=== PATIENT | female | born 2000 | race African-American/Black ===

== ENCOUNTER 2022-04-10 06:36 | Emergency (ER) | payer BC ==
--- OUTSIDE RECORDS SUMMARY | 2022-04-10 06:42 | XMS REPORT | Continuity of Care Document ---
:2000 Author Organization [facility] t Address [address] [place] [address] Care Team Providers Name Role Phone Bacilio OLEARY Primary Care Physician Unavailable Kirill BANUELOS Attending Clinician Unavailable Kirill Banuelos MD Attending Clinician 2, Lab Attending Clinician Unavailable Vinicio MINA Attending Clinician Unavailable Vinicio Moreno Attending Clinician Doctor Unassigned, Name Attending Clinician Unavailable Bang Colbert DO Attending Clinician Singer DREW Attending Clinician Birdie Garcia MD Attending Clinician Ammon HENDERSON Attending Clinician MELVIN Attending Clinician Unavailable Bacilio Bates Attending Clinician BIRDIE GARCIA Admitting Clinician Unavailable Kirill BANUELOS Admitting Clinician Unavailable Kirill Banuelos MD Admitting Clinician Vinicio MINA Admitting Clinician Unavailable Birdie Garcia MD Admitting Clinician Payers Payer Name Policy Type Policy Number Effective Date Expiration Date Lesa puga [facility] [id number] 2017 00:00:00 [employer] II [id number] 2021 00:00:00 Problems Condition Condition Condition Status Onset Resolution Last Treating Co mments Source Name Details Category Date Date Treatment Clinician Date Hyperemesi Hyperemesi Disease Active U nivers s s 7-22 ity of gravid[place] with 00 Medical dehydratio dehydratio Br anch n n High-risk High-risk Disease Active Uni vers 7-22 ity of in first in first 00:00: [place] trimester trimester 00 [facility] 9 weeks 9 weeks Disease Active Univers gestation gestation 7-22 ity of of of 00:00: [place] 00 [facility] Nausea and Nausea and Disease Active U nivers vomiting vomiting 2-25 ity of during during 00:00: [place] 00 [facility] prior to prior to [place] 22 weeks 22 weeks gestation gestation Hypokalemi Hypokalemi Disease Active U nivers a a 2-25 ity of 00:00: [place] [facility] Hypomagnes Hypomagnes Disease Active U nivers emia emia 2-25 ity of 00:00: [place] [facility] BV BV Disease Active Univers (bacterial (bacterial 2-25 it y of vaginosis) vaginosis) [place] [facility] Bloody Bloody Disease Active Univers stool stool 4-19 ity of 00:00: [place] [facility] Other Other Disease Active Univers general general 3-15 ity of counseling counseling 00:00[place] and advice and advice 00 [facility] shania management management Heavy Heavy Disease Active Univers menses menses 3-15 ity of 00:00: [place] [facility] Lump or Lump or Disease Active 2015-09 Univers mass in mass in 1-04 ity of breast breast 00:00: [address] No known No known Disease Unive rs active active ity of problems problems [facility] Allergies, Adverse Reactions, Alerts Allergy Allergy Status Severity Reaction(s) Onset Inactive Treating Comm ents Source Name Type Date Date Clinician NO KNOWN Drug Active Univers ALLERGIE Class ity of S [facility] Social History Social Habit Start Date Stop Date Quantity Comments Source ASSERTION 2022-02-16 University of 00:00:00 [facility] Exposure to 2022-03-29 2022-04-08 Not sure [facility] SARS-CoV-2 00:00:00 09:39:00 [facility] (event) Branch Alcohol intake 2022-03-24 2022-03-24 0 /d University of 00:00:00 00:00:00 [facility] Tobacco use and 2015-09-15 2015-09-15 Smokeless tobacco Un iversity of exposure 00:00:00 00:00:00 non-user [facility] Tobacco Comment 2015-09-15 2015-09-15 no smoke exposure Un iversity of 00:00:00 00:00:00 [facility] Sex Assigned At [birth year] Universit y of 00:00:00 00:00:00 [facility] Smoking Status Start Date Stop Date Source Never smoked tobacco [facility] Medications Ordered Filled Start Stop Current Ordering Indication Dosage Frequency Signature Comments Components Source Medication Medication Date Date Medication? Clinician (SIG) Name Name NaCl 0.9% Yes 1000mL at 999 Univ ers (NS) IV 7-22 mL/hr, IV ity of infusion 19:15: [place] 1,000 mL 00 CONTINUOUS Medic al , Starting Branch on Mon04/08/22 at 1415, Until Discontinu ed, Routine&lt ;br>X 2 liters
ondansetron Yes 4mg 4 mg, Slow Univers (ZOFRAN 7-22 IV Push, ity of (PF)) 18:14: Q6HPRN, [place] injection 4 16 Starting Medi kaden mg on Mon Branch 04/08/22 at 1314, Until Discontinu ed, Routine, Nausea and Vomiting (N/V) proMETHazin Yes 25mg Take 1 Univers e 25 mg 7-22 tablet by ity of tablet 00:00: mouth [place] 00 every 4 Medical (four) Branch hours as needed for Nausea and Vomiting (N/V) or N/V alternatin g with Ondansetro n. ondansetron Yes 4mg Take 1 Univers 4 mg 7-22 tablet by ity of disintegrat 00:00: mouth [place] ing tablet 00 every 8 Medica l (eight) Branch hours as needed for N/V unresponsi ve to Promethazi ne. proMETHazin Yes 25mg Take 1 Univers e 25 mg 7-22 tablet by ity of tablet 00:00: mouth [place] 00 every 4 Medical (four) Branch hours as needed for Nausea and Vomiting (N/V) or N/V alternatin g with Ondansetro n. ondansetron Yes 4mg Take 1 Univers 4 mg 7-22 tablet by ity of disintegrat 00:00: mouth [place] ing tablet 00 every 8 Medica l (eight) Branch hours as needed for N/V unresponsi ve to Promethazi ne. proMETHazin Yes 25mg Take 1 Univers e 25 mg 7-22 tablet by ity of tablet 00:00: mouth [place] 00 every 4 Medical (four) Branch hours as needed for Nausea and Vomiting (N/V) or N/V alternatin g with Ondansetro n. ondansetron Yes 4mg Take 1 Univers 4 mg 7-22 tablet by ity of disintegrat 00:00: mouth [place] ing tablet 00 every 8 Medica l (eight) Branch hours as needed for N/V unresponsi ve to Promethazi ne. NaCl 0.9% 2021- No 1000mL at 999 Uni vers (NS) bolus 7-07 07-07 mL/hr, ity of infusion 17:00: 17:52 1,000 mL, [place] 1,000 mL 00 :00 IV Medical Infusion, Branch ONCE, 1 dose, On [place] 03/24/22 at 1200, VIN doxylamine- 0 Yes [id number] 2{tbl} Take 2 Univers pyridoxine, 7-06 tablets by it y of vit B6, 00:00: mouth at [place] ([facility] 00 bedtime. Medic al 10-10 mg Branch per tablet doxylamine- 2021-0 Yes [id number] 2{tbl} Take 2 Univers pyridoxine, 7-06 tablets by it y of vit B6, 00:00: mouth at [place] ([facility]) 00 bedtime. Medic al 10-10 mg Branch per tablet doxylamine- 2021-0 Yes [id number] 2{tbl} Take 2 Univers pyridoxine, 7-06 tablets by it y of vit B6, 00:00: mouth at [facility]) 00 bedtime. Medic al 10-10 mg Branch per tablet doxylamine- Yes [id number] 2{tbl} Take 2 Univers pyridoxine, 7-06 tablets by it y of vit B6, 00:00: mouth at [place] ([facility]) 00 bedtime. Medic al 10-10 mg Branch per tablet doxylamine- Yes [id number] 2{tbl} Take 2 Univers pyridoxine, 7-06 tablets by it y of vit B6, 00:00: mouth at [place] ([facility]) 00 bedtime. Medic al 10-10 mg Branch per tablet proMETHazin Yes [id number] 25mg Insert 1 Univers e 25 mg 03-18 Suppositor ity of suppository 00:00: [place] 00 rectum Medical every 4 Branch (four) hours as needed for Nausea and Vomiting (N/V). proMETHazin 2021- No [id number] 25mg Insert 1 Univers e 25 mg 03-18-06 Suppositor ity o f suppository 00:00: 00:00 y into [place] as 00 :00 rectum Medical every 4 Branch (four) hours as needed for Nausea and Vomiting (N/V). NaCl 0.9% 2020- No 1000mL at 999 Uni vers (NS) bolus 04-18 mL/hr, ity of infusion 05:30: 08:15 1,000 mL, [place] 1,000 mL 00 :00 [facility] dose, 04/18/21 at 0030, STAT ondansetron 2020- No 8mg 8 mg, Slow Univers (ZOFRAN 04-18 IV Push, ity of (PF)) 05:30: 06:50 ONCE, 1 [place] injection 8 00 :00 dose, [place] Med ical mg 04/18/21 at Branch 0030, Routine metroNIDAZO Yes 1{appli 1 Uni vers LE 11-13 cator} Applicator ity of (METROGEL) 03:00: , Vaginal, [place] 0.75 % 00 QHS, First Medical vaginal gel dose on Branc h 1 [place] Applicator 11/12/20 at 2100, Until Discontinu ed, Routine metoclopram 1-0 Yes 10mg 10 mg, Univ ers arminda HCl 2-26 Slow IV ity of (REGLAN) 01:16: Push, [place] injection 30 Q6HPRN, Medical 10 mg Starting Branch [place] 11/12/20 at 1916, Until Discontinu ed, VIN, Nausea and Vomiting (N/V) metoclopram 2021-0 Yes [id number] 10mg Take 1 Univers arminda HCl 10 2-26 tablet by ity of mg tablet 00:00: mouth [place] 00 every 6 Medical (six) Branch hours as needed for Nausea and Vomiting (N/V). metoclopram 2021-0 Yes [id number] 10mg Take 1 Univers arminda HCl 10 2-26 tablet by ity of mg tablet 00:00: mouth [place] 00 every 6 Medical (six) Branch hours as needed for Nausea and Vomiting (N/V). metoclopram 2021-0 Yes [id number] 10mg Take 1 Univers arminda HCl 10 2-26 tablet by ity of mg tablet 00:00: mouth [place] 00 every 6 Medical (six) Branch hours as needed for Nausea and Vomiting (N/V). metoclopram 2021-0 Yes [id number] 10mg Take 1 Univers arminda HCl 10 2-26 tablet by ity of mg tablet 00:00: mouth [place] 00 every 6 Medical (six) Branch hours as needed for Nausea and Vomiting (N/V). metoclopram 2021-0 Yes [id number] 10mg Take 1 Univers arminda HCl 10 2-26 tablet by ity of mg tablet 00:00: mouth [place] 00 every 6 Medical (six) Branch hours as needed for Nausea and Vomiting (N/V). metoclopram 2021-0 Yes [id number] 10mg Take 1 Univers arminda HCl 10 2-26 tablet by ity of mg tablet 00:00: mouth [place] 00 every 6 Medical (six) Branch hours as needed for Nausea and Vomiting (N/V). metoclopram 2021-0 Yes [id number] 10mg Take 1 Univers arminda HCl 10 2-26 tablet by ity of mg tablet 00:00: mouth [place] 00 every 6 Medical (six) Branch hours as needed for Nausea and Vomiting (N/V). metoclopram 2021-0 Yes [id number] 10mg Take 1 Univers arminda HCl 10 2-26 tablet by ity of mg tablet 00:00: mouth [place] 00 every 6 Medical (six) Branch hours as needed for Nausea and Vomiting (N/V). metoclopram No [id number] 10mg Take 1 Univers arminda HCl 10 11-13 0722 tablet by ity of mg tablet 00:00: 00:00 mouth [place] 00 :00 every 6 Medical (six) Branch hours as needed for Nausea and Vomiting (N/V). metroNIDAZO 2020- No [id number] 1{appli Insert 1 Univers LE 0.75 % 11-13 cator} Applicator i ty of vaginal gel 00:00: 05:59 into [place] 00 :00 vagina at [facility] bedtime [place] for 4 days. magnesium No 2g 2 g, IV Univ ers sulfate in 11-13 Piggyback, it y of water 2 00:00: 01:31 ONCE, 1 [place] gram/50 mL 00 :00 dose, [place] Medi kaden (4 %) 11/12/20 at [place] infusion 2 1800, g Routine NaCl 0.9% Yes IV Univers (NS) 1000 11-12 Infusion, ity o f mL + KCL 40 21:00: at 125 [place] mEq 00 mL/hr, Medical CONTINUOUS [place] , Starting [place] 11/12/20 at 1500, Until Discontinu ed, Routine KCL No 40meq 40 mEq, Univers (KLOR-CON 11-12 Oral, ity of M20) tablet 16:00: 15:18 ONCE, 1 [place] 40 mEq 00 :00 dose, [place] Medical 11/12/20 at Branch 1000, VIN proMETHazin 2020- No 25mg 25 mg, IV Univers e 11-12 Piggyback, ity of (PHENERGAN) 15:45: 14:48 ONCE, 1 [place] 25 mg in 00 :00 dose, [place] Medica l NaCl 0.9% 11/12/20 at [facility] ch (NS) 50 mL 0945, 50 piggyback mL dicyclomine 2020- No 20mg 20 mg, Uni vers (BENTYL) 11-12 Oral, ity of tablet 20 15:15: 14:13 ONCE, 1 [place] mg 00 :00 dose, [place] Medical 11/12/20 at Branch 0915, Routine acetaminoph 2020- No 650mg 650 mg, U nivers en 11-12 Oral, ity of (TYLENOL) 15:00: 14:00 ONCE, 1 [place] tablet 650 00 :00 dose, [place] Medi kaden mg 11/12/20 at Branch 0900, VIN metoclopram 2020- No 10mg 10 mg, Uni vers arminda HCl 11-12 Slow IV ity of (REGLAN) 14:45: 13:42 Push, [place] injection 00 :00 ONCE, 1 Medical 10 mg dose, [place] Branch 11/12/20 at 0845, VIN NaCl 0.9% 2020- No 1000mL at 999 Uni vers (NS) bolus 11-12 mL/hr, ity of infusion 13:45: 14:45 1,000 mL, [place] 1,000 mL 00 :00 IV Medical Infusion, [place] ONCE, 1 dose, [place] 11/12/20 at 0745, STAT proMETHazin 2020- No [id number] 25mg Insert 1 Univers e 25 mg 11-12 Suppositor ity o f suppository 00:00: 00:00 y into [place] as 00 :00 rectum Medical every 4 Branch (four) hours as needed for Nausea and Vomiting (N/V). metroNIDAZO 2020- No [id number] 1{appli Insert 1 Univers LE 11-12 cator} Applicator ity of (METROGEL 00:00: 00:00 into [place] VAGINAL) 00 :00 vagina at Medica l 0.75 % bedtime. [place] vaginal gel haloperidol 2020- No 2.5mg 2.5 mg, U nivers lactate 11-10 Intravenou ity o f (HALDOL) 15:30: 14:44 s, ONCE, 1 [place] injection 00 :00 dose, Tue Medic al 2.5 mg 11/10/20 at Branch 0930, STAT NaCl 0.9% 2020- No 1000mL at 999 Uni vers (NS) bolus 2-23 02- mL/hr, ity of infusion 14:30: 17:32 1,000 mL, [place] 1,000 mL 00 :00 IV Medical Infusion, Branch ONCE, 1 dose, 11/10/20 at 0830, VIN KCL 2020- No 10meq 10 mEq, IV Unive rs (POTASSIUM 11-10 Piggyback, it y of CHLORIDE) 14:00: 12:53 ONCE, 1 [place] 10 mEq in 00 :00 dose, Tue Medic al NaCl 0.9% 11/10/20 at Bran ch (NS) 100 mL 0800, 100 piggyback mL metoclopram 2020- No 10mg 10 mg, Uni vers arminda HCl 11-10 Slow IV ity of (REGLAN) 13:30: 12:23 Push, [place] injection 00 :00 ONCE, 1 Medical 10 mg dose, Tue Branch 11/10/20 at 0730, VIN NaCl 0.9% 2020- No 1000mL at 999 Uni vers (NS) bolus 11-10 mL/hr, ity of infusion 13:30: 15:19 1,000 mL, [place] 1,000 mL 00 :00 IV Medical Infusion, Branch ONCE, 1 dose, 11/10/20 at 0730, STAT ondansetron Yes [id number] 4mg Take 1 Univers (ZOFRAN 2-23 tablet by ity of ODT) 4 mg 00:00: mouth [place] disintegrat 00 every 8 Medic al ing tablet (eight) Branch hours as needed for Nausea and Vomiting (N/V). ondansetron 0 2020- No [id number] 4mg Take 1 Univers (ZOFRAN 2-23 02-26 tablet by ity of ODT) 4 mg 00:00: 00:00 mouth [place] disintegrat 00 :00 every 8 Medic al ing tablet (eight) Branch hours as needed for Nausea and Vomiting (N/V). No known No Univers medications ity [facility] [place] No known No Univers medications ity [facility] [place] No known No Univers medications ity [facility] [place] No known No [facility] No Univers medications [facility] Immunizations Ordered Immunization Filled Immunization Date Status Commen ts Source Name Name Td 2016-04-13 Completed University of 00:00:00 [facility] Td 2016-04-13 Completed University of 00:00:00 [facility] Td 2016-04-13 Completed University of 00:00:00 [facility] Td 2016-04-13 Completed University of 00:00:00 [facility] Td 2016-04-13 Completed University of 00:00:00 [facility] Td 2016-04-13 Completed University of 00:00:00 [facility] Td 2016-04-13 Completed University of 00:00:00 [facility] Td 2016-04-13 Completed University of 00:00:00 [facility] Td 2016-04-13 Completed University of 00:00:00 [facility] Td 2016-04-13 Completed University of 00:00:00 [facility] Td 2016-04-13 Completed University of 00:00:00 [facility] Td 2016-04-13 Completed University of 00:00:00 [facility] Td 2016-04-13 Completed University of 00:00:00 [facility] Td 2016-04-13 Completed University of 00:00:00 [facility] Td 2016-04-13 Completed University of 00:00:00 [facility] Td 2016-04-13 Completed University of 00:00:00 [facility] Td 2016-04-13 Completed University of 00:00:00 [facility] Meningococcal 2015-09-15 Completed University of Polysaccharide 00:00:00 [place] Medi kaden (groups A, C, Y and Branc h W-135) conjugate vaccine (MCV4P) Meningococcal 2015-09-15 Completed University of Polysaccharide 00:00:00 [place] Medi kaden (groups A, C, Y and Branc h W-135) conjugate vaccine (MCV4P) Meningococcal 2015-09-15 Completed University of Polysaccharide 00:00:00 [place] Medi kaden (groups A, C, Y and Branc h W-135) conjugate vaccine (MCV4P) Meningococcal 2015-09-15 Completed University of Polysaccharide 00:00:00 [place] Medi kaden (groups A, C, Y and Branc h W-135) conjugate vaccine (MCV4P) Meningococcal 2015-09-15 Completed University of Polysaccharide 00:00:00 [place] Medi kaden (groups A, C, Y and Branc h W-135) conjugate vaccine (MCV4P) Meningococcal 2015-09-15 Completed University of Polysaccharide 00:00:00 [place] Medi kaden (groups A, C, Y and Branc h W-135) conjugate vaccine (MCV4P) Meningococcal 2015-09-15 Completed University of Polysaccharide 00:00:00 [place] Medi kaden (groups A, C, Y and Branc h W-135) conjugate vaccine (MCV4P) Meningococcal 2015-09-15 Completed University of Polysaccharide 00:00:00 [place] Medi kaden (groups A, C, Y and Branc h W-135) conjugate vaccine (MCV4P) Meningococcal 2015-09-15 Completed University of Polysaccharide 00:00:00 [place] Medi kaden (groups A, C, Y and Branc h W-135) conjugate vaccine (MCV4P) Meningococcal 2015-09-15 Completed University of Polysaccharide 00:00:00 [place] Medi kaden (groups A, C, Y and Branc h W-135) conjugate vaccine (MCV4P) Meningococcal 2015-09-15 Completed University of Polysaccharide 00:00:00 [place] Medi kaden (groups A, C, Y and Branc h W-135) conjugate vaccine (MCV4P) Meningococcal 2015-09-15 Completed University of Polysaccharide 00:00:00 [place] Medi kaden (groups A, C, Y and Branc h W-135) conjugate vaccine (MCV4P) Meningococcal 2015-09-15 Completed University of Polysaccharide 00:00:00 [place] Medi kaden (groups A, C, Y and Branc h W-135) conjugate vaccine (MCV4P) Meningococcal 2015-09-15 Completed University of Polysaccharide 00:00:00 [place] Medi kaden (groups A, C, Y and Branc h W-135) conjugate vaccine (MCV4P) Meningococcal 2015-09-15 Completed University of Polysaccharide 00:00:00 [place] Medi kaden (groups A, C, Y and Branc h W-135) conjugate vaccine (MCV4P) Meningococcal 2015-09-15 Completed University of Polysaccharide 00:00:00 [place] Medi kaden (groups A, C, Y and Branc h W-135) conjugate vaccine (MCV4P) Meningococcal 2015-09-15 Completed University of Polysaccharide 00:00:00 [place] Medi kaden (groups A, C, Y and Branc h W-135) conjugate vaccine (MCV4P) HPV 2012-11-12 Completed University of 00:00:00 [facility] HPV 2012-11-12 Completed University of 00:00:00 [facility] HPV 2012-11-12 Completed University of 00:00:00 [facility] Branch HPV 2012-11-12 Completed University of 00:00:00 [facility] Branch HPV 2012-11-12 Completed University of 00:00:00 [facility] Branch HPV 2012-11-12 Completed University of 00:00:00 [facility] Branch HPV 2012-11-12 Completed University of 00:00:00 [facility] Branch HPV 2012-11-12 Completed University of 00:00:00 [facility] Branch HPV 2012-11-12 Completed University of 00:00:00 [facility] Branch HPV 2012-11-12 Completed University of 00:00:00 [facility] Branch HPV 2012-11-12 Completed University of 00:00:00 [facility] Branch HPV 2012-11-12 Completed University of 00:00:00 [facility] Branch HPV 2012-11-12 Completed University of 00:00:00 [facility] HPV 2012-11-12 Completed University of 00:00:00 [facility] HPV 2012-11-12 Completed University of 00:00:00 [facility] HPV 2012-11-12 Completed University of 00:00:00 [facility] HPV 2012-11-12 Completed University of 00:00:00 [facility] Influenza Virus 2012-07-12 Completed Universit y of Vaccine - Whole 00:00:00 [facility] HPV 2012-07-12 Completed University of 00:00:00 [facility] Influenza Virus 2012-07-12 Completed Universit y of Vaccine - Whole 00:00:00 [facility] HPV 2012-07-12 Completed University of 00:00:00 [facility] Influenza Virus 2012-07-12 Completed Universit y of Vaccine - Whole 00:00:00 [facility] HPV 2012-07-12 Completed University of 00:00:00 [facility] Influenza Virus 2012-07-12 Completed Universit y of Vaccine - Whole 00:00:00 [facility] HPV 2012-07-12 Completed University of 00:00:00 [facility] Influenza Virus 2012-07-12 Completed Universit y of Vaccine - Whole 00:00:00 [facility] HPV 2012-07-12 Completed University of 00:00:00 [facility] Influenza Virus 2012-07-12 Completed Universit y of Vaccine - Whole 00:00:00 [facility] HPV 2012-07-12 Completed University of 00:00:00 [facility] Influenza Virus 2012-07-12 Completed Universit y of Vaccine - Whole 00:00:00 [facility] HPV 2012-07-12 Completed University of 00:00:00 [facility] Influenza Virus 2012-07-12 Completed Universit y of Vaccine - Whole 00:00:00 [facility] HPV 2012-07-12 Completed University of 00:00:00 [facility] Influenza Virus 2012-07-12 Completed Universit y of Vaccine - Whole 00:00:00 [facility] HPV 2012-07-12 Completed University of 00:00:00 [facility] Influenza Virus 2012-07-12 Completed Universit y of Vaccine - Whole 00:00:00 [facility] HPV 2012-07-12 Completed University of 00:00:00 [facility] Influenza Virus 2012-07-12 Completed Universit y of Vaccine - Whole 00:00:00 [facility] HPV 2012-07-12 Completed University of 00:00:00 [facility] Influenza Virus 2012-07-12 Completed Universit y of Vaccine - Whole 00:00:00 [facility] HPV 2012-07-12 Completed University of 00:00:00 [facility] Influenza Virus 2012-07-12 Completed Universit y of Vaccine - Whole 00:00:00 [facility] HPV 2012-07-12 Completed University of 00:00:00 [facility] Influenza Virus 2012-07-12 Completed Universit y of Vaccine - Whole 00:00:00 [facility] HPV 2012-07-12 Completed University of 00:00:00 [facility] Varicella 2012-05-11 Completed University of (varivax)(chicken 00:00:00 [place] M edical pox) Branch HPV 2012-05-11 Completed University of 00:00:00 [facility] Meningococcal 2012-05-11 Completed University of Polysaccharide 00:00:00 [facility] kaden (groups A, C, Y and Branc h W-135) conjugate vaccine (MCV4P) Tdap 2012-05-11 Completed University of 00:00:00 [facility] Varicella 2012-05-11 Completed University of (varivax)(chicken 00:00:00 [place] M edical pox) Branch HPV 2012-05-11 Completed University of 00:00:00 [facility] Meningococcal 2012-05-11 Completed University of Polysaccharide 00:00:00 [place] Medi kaden (groups A, C, Y and Branc h W-135) conjugate vaccine (MCV4P) Tdap 2012-05-11 Completed University of 00:00:00 [facility] Varicella 2012-05-11 Completed University of (varivax)(chicken 00:00:00 [place] M edical pox) Branch HPV 2012-05-11 Completed University of 00:00:00 [facility] Meningococcal 2012-05-11 Completed University of Polysaccharide 00:00:00 [place] Medi kaden (groups A, C, Y and Branc h W-135) conjugate vaccine (MCV4P) Tdap 2012-05-11 Completed University of 00:00:00 [facility] Varicella 2012-05-11 Completed University of (varivax)(chicken 00:00:00 [place] M edical pox) Branch HPV 2012-05-11 Completed University of 00:00:00 [facility] Meningococcal 2012-05-11 Completed University of Polysaccharide 00:00:00 [place] Medi kaden (groups A, C, Y and Branc h W-135) conjugate vaccine (MCV4P) TDAP 2012-05-11 Completed University of 00:00:00 [facility] Varicella 2012-05-11 Completed University of (varivax)(chicken 00:00:00 [place] M edical pox) Branch HPV 2012-05-11 Completed University of 00:00:00 [facility] Meningococcal 2012-05-11 Completed University of Polysaccharide 00:00:00 [place] Medi kaden (groups A, C, Y and Branc h W-135) conjugate vaccine (MCV4P) TDAP 2012-05-11 Completed [facility] of 00:00:00 [facility] Varicella 2012-05-11 Completed University of (varivax)(chicken 00:00:00 [place] [facility]ox) [facility] HPV 2012-05-11 Completed [facility] of 00:00:00 [facility] Meningococcal 2012-05-11 Completed [facility] of Polysaccharide 00:00:00 [place] [facility] (groups A, C, Y and Branc h W-135) conjugate vaccine (MCV4P) TDAP 2012-05-11 Completed [facility] of 00:00:00 [facility] Varicella 2012-05-11 Completed University of (varivax)(chicken 00:00:00 [place] [facility] HPV 2012-05-11 Completed [facility] 00:00:00 [facility] Meningococcal 2012-05-11 Completed University of Polysaccharide 00:00:00 [place] [facility] (groups A, C, Y and Branc h W-135) conjugate vaccine (MCV4P) TDAP 2012-05-11 Completed [facility] of 00:00:00 [facility] Varicella 2012-05-11 Completed University of (varivax)(chicken 00:00:00 [place] [facility] pox) Branch HPV 2012-05-11 Completed [facility] of 00:00:00 [facility] Meningococcal 2012-05-11 Completed [facility] of Polysaccharide 00:00:00 [place] [facility] (groups A, C, Y and Branc h W-135) conjugate vaccine (MCV4P) TDAP 2012-05-11 Completed [facility] of 00:00:00 [facility] Varicella 2012-05-11 Completed University of (varivax)(chicken 00:00:00 [place] [facility]) [facility] HPV 2012-05-11 Completed [facility] 00:00:00 [facility] Meningococcal 2012-05-11 Completed [facility] of Polysaccharide 00:00:00 [place] [facility] (groups A, C, Y and Branc h W-135) conjugate vaccine (MCV4P) TDAP 2012-05-11 Completed [facility] of 00:00:00 [facility] Varicella 2012-05-11 Completed University of (varivax)(chicken 00:00:00 [place] [facility]) [facility] HPV 2012-05-11 Completed [facility] of 00:00:00 [facility] Meningococcal 2012-05-11 Completed [facility] of Polysaccharide 00:00:00 [place] [facility] (groups A, C, Y and Branc h W-135) conjugate vaccine (MCV4P) TDAP 2012-05-11 Completed [facility] 00:00:00 [facility] Varicella 2012-05-11 Completed University of (varivax)(chicken 00:00:00 [place] [facility] pox) [facility] HPV 2012-05-11 Completed [facility] 00:00:00 [facility] Meningococcal 2012-05-11 Completed [facility] of Polysaccharide 00:00:00 [place] [facility] (groups A, C, Y and Branc h W-135) conjugate vaccine (MCV4P) TDAP 2012-05-11 Completed [facility] 00:00:00 [facility] Varicella 2012-05-11 Completed [facility] of (varivax)(chicken 00:00:00 [place] [facility] [place] [facility] HPV 2012-05-11 Completed [facility] 00:00:00 [facility] Meningococcal 2012-05-11 Completed [facility] of Polysaccharide 00:00:00 [place] [facility] (groups A, C, Y and Branc h W-135) conjugate vaccine (MCV4P) TDAP 2012-05-11 Completed [facility] of 00:00:00 [facility] Varicella 2012-05-11 Completed [facility] of (varivax)(chicken 00:00:00 [place] [facility] [place] [facility] HPV 2012-05-11 Completed [facility] 00:00:00 [facility] Meningococcal 2012-05-11 Completed [facility] of Polysaccharide 00:00:00 [place] [facility] (groups A, C, Y and Branc h W-135) conjugate vaccine (MCV4P) Tdap 2012-05-11 Completed [facility] of 00:00:00 [facility] Varicella 2012-05-11 Completed [facility] of (varivax)(chicken 00:00:00 [place] [facility] [place] [facility] HPV 2012-05-11 Completed [facility] of 00:00:00 [facility] Meningococcal 2012-05-11 Completed [facility] of Polysaccharide 00:00:00 [place] [facility] (groups A, C, Y and Branc h W-135) conjugate vaccine (MCV4P) Tdap 2012-05-11 Completed [facility] of 00:00:00 [facility] Vital Signs Vital Name Observation Time Observation Value Comments Source Systolic blood 2022-04-08 17:45:00 104 mm[Hg] Univer sity of pressure [facility] Diastolic blood 2022-04-08 17:45:00 64 mm[Hg] Unive rsity [facility] Heart rate 2022-04-08 17:45:00 63 /min [facility] Body temperature 2022-04-08 17:45:00 36.61 Linh [facility] Res[facility] rate 2022-04-08 17:45:00 18 /min [facility] Systolic blood 2022-04-08 14:56:00 97 mm[Hg] Univer sity of pressure [facility] Diastolic blood 2022-04-08 14:56:00 64 mm[Hg] Unive rsity of [facility] Heart rate 2022-04-08 14:56:00 84 /min Universi ty of [facility] Body temperature 2022-04-08 14:56:00 37.17 Linh Univ ersity of [facility] Branch Respiratory rate 2022-04-08 14:56:00 16 /min Univ ersity of [facility] Body height 2022-04-08 14:56:00 157.5 cm Universi ty of [place] [facility] [place] Body weight 2022-04-08 14:56:00 51.619 kg Universi ty of [place] [facility] BMI 2022-04-08 14:56:00 20.81 kg/m2 Universi ty of [facility] Systolic blood 2022-03-24 16:12:00 105 mm[Hg] Univer sity of pressure [facility] Diastolic blood 2022-03-24 16:12:00 64 mm[Hg] Unive rsity of pressure [facility] Heart rate 2022-03-24 16:12:00 73 /min Universi ty of [facility] Respiratory rate 2022-03-24 16:12:00 16 /min Univ ersity of [facility] Oxygen saturation in 2022-03-24 16:12:00 100 /min [facility] Arterial blood by [facility] Pulse oximetry Branch Body temperature 2022-03-24 15:19:00 37.33 Linh Univ ersity of [facility] Body weight 2022-03-24 15:19:00 54.432 kg Universi ty of [place] [facility] BMI 2022-03-24 15:19:00 21.95 kg/m2 Universi ty of [facility] Systolic blood 2022-03-18 20:51:00 119 mm[Hg] Univer sity of pressure [facility] Diastolic blood 2022-03-18 20:51:00 71 mm[Hg] Unive rsity of pressure [facility] Heart rate 2022-03-18 20:51:00 61 /min Universi ty of [facility] Body temperature 2022-03-18 20:51:00 37 Linh Univ ersity of [facility] Respiratory rate 2022-03-18 20:51:00 16 /min Univ ersity of [facility] Body height 2022-03-18 20:51:00 157.5 cm Universi ty of [facility] Body weight 2022-03-18 20:51:00 55.067 kg [facility]i ty of [place] [facility] BMI 2022-03-18 20:51:00 22.20 kg/m2 Universi ty of [place] [facility] Systolic blood 2021-04-18 07:42:00 99 mm[Hg] Univer sity of pressure [facility] Diastolic blood 2021-04-18 07:42:00 48 mm[Hg] Unive rsity of pressure [facility] Heart rate 2021-04-18 07:42:00 62 /min Universi ty of [facility] [place] [facility] Respiratory rate 2021-04-18 07:42:00 16 /min Univ ersity of [facility] Oxygen saturation in 2021-04-18 07:42:00 100 /min University of Arterial blood by [employer] Pulse oximetry Branch Body temperature 2021-04-18 06:07:00 37.44 Linh Univ ersity of [facility] Body weight 2021-04-18 04:06:00 49.896 kg Universi ty of [facility] [place] [facility] BMI 2021-04-18 04:06:00 20.12 kg/m2 Universi ty [facility] Systolic blood 2020-11-13 13:13:00 99 mm[Hg] Univer sity of pressure [facility] Diastolic blood 2020-11-13 13:13:00 50 mm[Hg] Unive rsity of pressure [facility] Heart rate 2020-11-13 13:13:00 62 /min Universi ty of [facility] Body temperature 2020-11-13 13:13:00 36.94 Linh Univ ersity of [facility] Respiratory rate 2020-11-13 13:13:00 16 /min Univ ersity of [facility] Oxygen saturation in 2020-11-13 13:13:00 99 /min University of Arterial blood by [employer] P[facility] oxim[facility] Branch Body weight 2020-11-12 13:30:00 47.628 kg [facility]i ty [facility] [place] [facility] BMI 2020-11-12 13:30:00 19.20 kg/m2 [facility] [place] [facility] Systolic blood 2020-11-10 16:10:00 97 mm[Hg] Univer sity of pressure [facility] Diastolic blood 2020-11-10 16:10:00 65 mm[Hg] Unive rsity of pressure [facility] Heart rate 2020-11-10 16:10:00 57 /min [facility] Respiratory rate 2020-11-10 16:10:00 15 /min [facility] Oxygen saturation in 2020-11-10 16:10:00 100 /min [facility] Arterial blood by [facility] Pulse oximetry Branch Body temperature 2020-11-10 12:10:00 36.72 Linh [facility] Body height 2020-11-10 12:10:00 157.5 cm [facility] Body weight 2020-11-10 12:10:00 47.628 kg [facility] BMI 2020-11-10 12:10:00 19.20 kg/m2 [facility] Systolic blood 2019-04-19 13:24:00 102 mm[Hg] [facility] Diastolic blood 2019-04-19 13:24:00 66 mm[Hg] [facility] Heart rate 2019-04-19 13:24:00 64 /min [facility] Body temperature 2019-04-19 13:24:00 36.61 Linh [facility] Body weight 2019-04-19 13:24:00 52.617 kg [facility] Procedures Procedure Date / Time Performing Clinician Source Performed CONSENT/REFUSAL FOR 2022-04-08 17:10:53 Doctor Unassigned, [facility] DIAGNOSIS AND TREATMENT [place] [facility] ASSIGNMENT OF BENEFITS 2022-04-08 17:08:09 Doctor Unassigned, [facility] [place] [facility] POCT URINALYSIS W/O 2022-04-08 15:07:[address] [facility] SPECIFIC GRAVITY [facility] US FIRST 2022-03-24 16:51:58 Jose Eduardo Mina [facility] TRIMESTER LESS THAN 14 Medical B ranch WEEKS WITH TRANSVAGINAL HB ABO GROUPING 2022-03-24 16:14:00 Jose Eduardo Mina Lena o f [facility] COMP. METABOLIC PANEL 2022-03-24 16:10:00 Jose Eduardo Mina [facility] ([id number]) [facility] TOTAL BETA HCG ASSAY 2022-03-24 16:10:00 Jose Eduardo Mina [facility] CBC WITH DIFF 2022-03-24 16:10:00 Jose Eduardo Mina [facility] URINALYSIS 2022-03-24 16:10:00 Jose Eduardo Mina [facility] CONSENT/REFUSAL FOR 2022-03-24 15:09:[address] [facility] DIAGNOSIS AND TREATMENT [facility] <14 WEEKS US 2022-03-19 00:35:43 Adum, Gladis Roy [facility] URINE DRUG (IMMUNOASSAY) 2022-03-18 21:38:00 Adum, Gladis [facility] SCREEN PAP SMEAR-LIQUID BASED-CP 2022-03-18 21:38:00 Adum, Gladis Roy [facility] POCT TEST 2022-03-18 20:55:00 Adum, Gladis Roy [facility] POCT URINALYSIS W/O 2022-03-18 20:55:00 Adum, Gladis Roy [facility] SPECIFIC GRAVITY [facility] ASSIGNMENT OF BENEFITS 2022-03-18 18:50:07 Doctor Unaronnie, Un [facility] INSURANCE CORRESPONDENCE 2021-07-14 05:01:00 Doctor Samantha, [facility] EXTRA TUBE URINE CULTURE 2021-04-18 05:53:00 Stiven Kelly [facility] CBC WITH DIFF 2021-04-18 05:34:00 Stiven Kelly [facility] MAGNESIUM 2021-04-18 05:30:00 Stiven Kelly [facility] TEST, SERUM 2021-04-18 05:30:00 Stiven Kelly [facility] COMP. METABOLIC PANEL 2021-04-18 05:30:00 Stiven Kelly [facility] ([id number]) [facility] URINALYSIS 2021-04-18 05:25:00 Stiven Kelly [facility] CONSENT/REFUSAL FOR 2021-04-18 04:01:[address] [facility] DIAGNOSIS AND TREATMENT [place] [facility] [place] MAGNESIUM 2020-11-13 10:03:00 [facility] BASIC METABOLIC PANEL 2020-11-13 10:03:00 Andreas [facility] (NA, K, CL, CO2, GLUCOSE, Medica l Branch BUN, CREATININE, CA) COVID-19 (ID NOW RAPID 2020-11-12 18:12:[address] [facility] TESTING) Medical Branch ADC CLC OR LCC ONLY - WET 2020-11-12 13:50:00 Amilcar Mercado [facility] PREP Medical Branch MAGNESIUM 2020-11-12 13:43:00 Garcia [facility] COMP. METABOLIC PANEL 2020-11-12 13:43:00 Amilcar Mercado [facility] ([id number]) [facility] TOTAL BETA HCG ASSAY 2020-11-12 13:43:00 Amilcar Mercado [facility] CBC WITH DIFF 2020-11-12 13:43:00 Singer [facility] URINALYSIS 2020-11-12 13:43:00 Singer [facility] GC & CHLAMYDIA AMPLIFIED 2020-11-12 13:43:00 Amilcar Mercado [facility] NOTICE OF PRIVACY 2020-11-12 13:20:40 Doctor Unassigned, [facility] PRACTICES [place] [facility] FIRST 2020-11-10 14:43:54 Gabriel Verde [facility] TRIMESTER LESS THAN 14 Medical B ranch WEEKS WITH TRANSVAGINAL LIPASE 2020-11-10 12:22:00 Gabriel Verde [facility] HEPATIC FUNCTION PANEL 2020-11-10 12:22:[address] [facility] ([id number]) (ALB,T.PRO,BILI Medical Branch T,BU/BC,ALT,AST,ALK PHOS) BASIC METABOLIC PANEL 2020-11-10 12:22:00 Gabriel Verde [facility] (NA, K, CL, CO2, GLUCOSE, Medica l Branch BUN, CREATININE, CA) TOTAL BETA HCG ASSAY 2020-11-10 12:22:00 Gabriel Verde [facility] CBC WITH DIFF 2020-11-10 12:22:00 Gabriel Verde o f [facility] PROTHROMBIN TIME / INR 2020-11-10 12:22:00 [facility] ACTIV[facility] PARTIAL 2020-11-10 12:22:00 Gabirel Verde [facility] THRMPLAS [facility] URINALYSIS 2020-11-10 12:17:00 Gabriel Verde o f [facility] ADC / LCC - DRUG SCREEN 2020-11-10 12:17:00 Gabriel Verde [facility] POCT TEST 2020-11-10 12:16:00 Gabriel Verdei [facility] ASSIGNMENT OF BENEFITS 2019-04-19 13:14:14 Doctor Unassigned, [facility] [place] [facility] Encounters Start End Encounter Admission Attending Care Care Encounter Source Date/Time Date/Time Type Type Clinicians Facility Department ID 2021-07-19 Emergency [facility] [id number] Univers 12:14:12 ity [facility] [place] 2021-07-18 Outpatient X [facility] TAM [id number] Univers 01:35:46 ity [facility] [place] 2021-07-18 Emergency [facility] [id number] Univers 01:16:07 ity of [facility] 2021-07-18 Emergency [facility] [id number] Univers [facility] 2022-05-10 Outpatient R ADUM, [facility] [id number] Univers 11:15:00 11:15:00 GLADIS [id number] ity [facility] [place] 2022-05-10 2022-05-10 Outpatient R ADUM, [facility] [id number] Univers 11:15:00 11:15:00 GLADIS [facility] 2022-04-08 2022-04-08 Outpatient P ADUM, [facility] TAM [id number] Univers 12:07:00 16:45:00 GLADIS [facility] 2022-04-08 2022-04-08 [facility] Adum, [facility] [id number] Univers 12:07:00 16:45:00 Encounter Gladis L [place] [id number] ity of [place] [id number] [facility] [id number] [facility] [address] [place] 2022-04-08 2022-04-08 Typing Element 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 2022-04-08 2022-04-08 Outpatient R AD, [facility] [id number] Univers 11:30:00 11:30:00 GLADIS [id number] ity [facility] [place] 2022-04-08 2022-04-08 Outpatient R AD, [facility] [id number] Univers 11:30:00 11:30:00 GLADIS ity [facility] [place] 2022-04-08 2022-04-08 Routine [facility] [id number] Univers 09:45:00 11:27:27 Gladis Roy [place] [id number] ity of Visit [place] [id number] [facility] PROFESSIO [id number] Id dical NAL 134 [facility] 2022-03-24 2022-03-24 Emergency X [facility] ERT [id number] Univers 10:22:00 12:54:00 JOSE EDUARDO ity of [facility] 2022-03-24 2022-03-24 Emergency [facility] [id number] Univers 10:22:00 12:54:00 Jose Eduardo R [place] [id number] i ty of [place] [id number] [facility] [id number] [facility] [address] [place] 2022-03-23 2022-03-23 Telephone [facility] [id number] Univers 00:00:00 00:00:00 Gladis L [place] [id number] [id number] [id number] Id dical NAL [address] [facility] 2022-03-18 2022-03-18 Outpatient R ADUM, [facility] [id number] Univers 17:00:00 17:00:00 GLADIS [id number] ity of [facility] 2022-03-18 2022-03-18 Outpatient R ADUM, [facility] [id number] Univers 14:30:00 16:52:59 GLADIS ity of [facility] 2022-03-18 2022-03-18 [facility] 1.2.840.114 [id number] Univers 14:30:00 16:52:59 Gladis NAQVI [id number] [place] [id number] Id dical NAL [address] [place] [address] 2022-03-18 2022-03-18 Orders Doctor ANURADHA 1.2.840.114 [id number] Univers 00:00:00 00:00:00 Only Unassigned, GEOFFREY [id number] ity of [place] [facility] [id number] Adriel as [id number] [facility] [address] [place] 2021-07-14 2021-07-14 Orders Doctor ANURADHA 1.2.840.114 [id number] Univers 00:00:00 00:00:00 Only Unassigned, GEOFFREY [id number] ity of [place] [facility] 4.2.7.2.686 Adriel as [id number] [facility] [address] [place] 2021-04-17 2021-04-18 Emergency TRAUMA [id number] Univers 23:08:00 03:14:00 [place] [id number] [place] [id number] [facility] [address] [place] 2020-12-08 2020-12-08 Patient [facility] 1.2.840.114 [id number] Univers 00:00:00 00:00:00 Outreach Hernandez PRIMARY [id number] i ty of [facility] [id number] [facility] DENISE [id number] Id dical [address] [place] 2020-11-13 2020-11-13 Outpatient R NUPUR [facility] [id number] Univers 14:00:00 14:00:00 GLADIS [id number] ity [facility] 2020-11-12 2020-11-13 Emergency Amilcar Mercado [facility] 1.2.840. 114 [id number] Univers 07:37:00 08:50:00 Catherine Garcia [id number] ity of [place] [id number] [facility] [id number] [place] [address] [place] 2020-11-10 2020-11-10 Emergency [facility] [id number] Univers 06:13:00 11:33:00 Gabriel Naqvi 350.1.13.10 i ty of [place] 4.2.7.2.[address] [facility] [id number] [place] [address] [place] 2019-12-02 2019-12-02 Outpatient R MELVIN [facility] [id number] Univers 10:30:00 10:30:00 YANELIS [facility] 2019-11-30 2019-11-30 Patient Doctor ANURADHA 1.2.840.114 [id number] Univers 00:00:00 00:00:00 Secure Msg Unassigned, GEOFFREY [id number] ity of [place] [facility] [id number] Adriel as [phone] [facility] [address] [place] 2019-04-22 2019-04-22 Telephone [facility] [id number] Univers 00:00:00 00:00:00 Maureen [facility] [id number] i ty of [place] 4.2.7.2.686 Adriel as Gibran [id number] Id dicmd nal [address] [place] [address] 2019-04-19 2019-04-19 Office [facility] 1.2.840.114 [id number] Univers 08:16:58 08:53:49 Visit Maureen [facility] 350.1.13.10 i ty of [place] 4.2.7.2.686 Adreil as Gibran [id number] Id dical nal [address] 2019-04-19 2019-04-19 Orders Doctor ANURADHA 1.2.840.114 [id number] Univers 00:00:00 00:00:00 Only Unassigned, GEOFFREY [id number] ity of [place] [facility] [id number] Adriel as [phone] [facility] [address] [place] Results Test Description Test Time Test Comments Results Result Comments Source POCT URINALYSIS W/O SPECIFIC GRAVITY 2022-04-08 15:07:00 Test Item Value Reference Range Interpretation Comme nts POCT PH U (test code = 3254) 6 mg/dl 5-8 POCT U LEUK EST (test code = 3263) negative Negative - Negative POCT U NIT (test code = 3262) negative Negative - Negative POCT U PROT (test code = 3259) POCT U GLU (test code = 3256) normal Negative - Negative POCT U KETONE (test code = 3258) ++ Negative - Negative POCT U BLD (test code = 3257) n/a Negative - Negative [facility] [id number] 17:26:35 Test Item Value Reference Range Interpretation Comments BETA HCG (test See_Comment [Automated m essage] code = The system [employer] [id number]) generated this result transmit katelyn reference range : Non- fe male and male patien ts: <5 mIU/mL. The reference range was not used to interpret this result as normal/abnormal . LANE (test code Gestational Age ? ? = LANE) ?Range (mIU/mL) 1-10 ?Weeks ?[id number] Weeks ?[id number] Weeks ?[id number] Weeks ?[id number] Biotin has been reported to cause a negative bias, interpret results relative to patient's use of biotin. [facility] WITH [id number] 17:18:31 Test Item Value Reference Range Interpretation Comments WBC (test code = See_Comment [Automated 6690-2) message] The sy stem which generated this result transmitted reference range : 4.30 - 11.10 10*3/?L. The reference range was not used to interpret this result as normal/abnormal . RBC (test code = See_Comment L [Automated 789-8) message] The sy stem which generated this result transmitted reference range : 3.93 - 5.25 10*6/?L. The reference range was not used to interpret this result as normal/abnormal . HGB (test code = 12.2 g/dL 11.6-15.0 718-7) HCT (test code = 36.1 % 35.7-45.2 4544-3) MCV (test code = 94.8 fL 80.6-95.5 787-2) MCH (test code = 32.0 pg 25.9-32.8 785-6) MCHC (test code = 33.8 g/dL 31.6-35.1 786-4) RDW-SD (test code = 43.9 fL 39.0-49.9 95960-4) RDW-CV (test code = 12.6 % 12.0-15.5 788-0) PLT (test code = See_Comment L [Automated 777-3) message] The sy stem which generated this result transmitted reference range : 166 - 358 10*3/ ?L. The reference r everett was not used to interpret this result as normal/abnormal . MPV (test code = 12.6 fL 9.5-12.9 71815-4) IPF % (test code = 18.1 % 1.3-7.7 H Platelet count [id number]) measured by fluorescence method. NRBC/100 WBC (test See_Comment [Automat ed code = [id number]) message] The system which generated this result transmitted reference range : 0.0 - 10.0 /100 WBCs. The refer ence range was not u sed to interpret th is result as normal/abnormal . NRBC x10^3 (test code <0.01 See_Comment [Auto mated = [id number]) message] The s ystem which generated this result transmitted reference range : 10*3/?L. The reference range was not used to interpret this result as normal/abnormal . GRAN MAT (NEUT) % 66.4 % (test code = 770-8) IMM GRAN % (test code 0.40 % = 0404099931) LYMPH % (test code = 25.0 % 736-9) MONO % (test code = 6.2 % 5905-5) EOS % (test code = 0.9 % 713-8) BASO % (test code = 1.1 % 706-2) GRAN MAT x10^3(ANC) 5.02 10*3/uL 1.88-7.09 (test code = 6640933710) IMM GRAN x10^3 (test 0.03 10*3/uL 0.00-0.06 code = 9427089579) LYMPH x10^3 (test code 1.89 10*3/uL 1.32-3.29 = 731-0) MONO x10^3 (test code 0.47 10*3/uL 0.33-0.92 = 742-7) EOS x10^3 (test code = 0.07 10*3/uL 0.03-0.39 711-2) BASO x10^3 (test code 0.08 10*3/uL 0.01-0.07 H = 704-7) Lab Interpretation Abnormal (test code = 75799-9) [facility] [id number] 17:16:52 Test Item Value Reference Range Interpretation Comments ABO & RH (test code O Positive Performe d at [facility] = 20) [facility] [address] [place], [place] [id number] Free: [phone] A No. [id number] IAT (test code = Negative Performed a t [facility] 1185) [facility] [address] [place] [address]Aqeh Free: [phone] A No. [id number] [facility]. MET[facility]OLIC PANEL ([id number])2022-03-24 16:43:43 Test Item Value Reference Range Interpretation Comments NA (test code = 140 mmol/L 135-145 0714113898) K (test code = 4.0 mmol/L 3.5-5.0 4386508179) CL (test code = 103 mmol/L 98-108 5416192564) CO2 TOTAL (test code = 21 mmol/L 23-31 L 6641346741) AGAP (test code = 2-16 9800181737) BUN (test code = 6 mg/dL 7-23 L 4163322216) GLUCOSE (test code = 87 mg/dL 70-110 4602316411) CREATININE (test code = 0.52 mg/dL 0.50-1.04 0852522654) TOTAL BILI (test code = 0.4 mg/dL 0.1-1.4 8773228661) CALCIUM (test code = 10.4 mg/dL 8.6-10.6 0099557513) T PROTEIN (test code = 8.3 g/dL 6.3-8.2 H 6303586295) ALBUMIN (test code = 5.3 g/dL 3.5-5.0 H 4501304176) ALK PHOS (test code = 40 U/L 34-122 8038600640) ALTv (test code = 15 U/L 5-35 1742-6) AST(SGOT) (test code = 20 U/L 13-40 3941813345) eGFR (test code = mL/min/1.73m2 7072364477) LANE (test code = LANE) Association of Glomerular Filtration Rate (GFR) and Staging of Kidney Disease* + --+ --+ ------+| GFR (mL/min/1.73 m2) ?| With Kidney Damage ?| ?Without Kidney Damage+ --------+ --------+ +| ?>90 ?| ?Stage one ?| ? Normal ?+ ---+ ---+ -------+| ?60-89 ?| ?Stage two ?| ? Decreased GFR ? + --+ --+ ------+| ?30-59 ?| ?Stage three ?| ? Stage three ? + --+ --+ ------+| ?15-29 ?| ?Stage four ? | ? Stage four ?+ ---+ ---+ -------+| ?<15 (or dialysis) ? ?| ?Stage five ? | ? Stage five ?+ ---+ ---+ -------+ *Each stage assumes the associated GFR level has been in effect for at least three months. ?Stages 1 to 5, with or without kidney disease, indicate chronic kidney disease. Notes: Determination of stages one and two (with eGFR >59mL/min/1.73 m2) requires estimation of kidney damage for at least three months as defined by structural or functional abnormalities of the kidney, manifested by either:Pathological abnormalities or Markers of kidney damage (including abnormalities in the composition of the blood or urine or abnormalities in imaging tests). Lab Interpretation Abnormal (test code = 84175-7) [facility] URINALYSIS W/O SPECIFIC [id number] 20:56:00 Test Item Value Reference Range Interpretation Comments POCT PH U (test code = 3254) n/a 5-8 POCT U LEUK EST (test code = n/a Negative - Negative 3263) POCT U NIT (test code = 3262) n/a Negative - Negative POCT U PROT (test code = 3259) trace Negative - Negative POCT U GLU (test code = 3256) negative Negative - Negative POCT U KETONE (test code = 3258) n/a Negative - Negative POCT U BLD (test code = 3257) n/a Negative - Negative [facility] [id number] 20:55:00 Test Item Value Reference Range Interpretation Comments POCT PREG (test code = 1605) Positive On board controls acceptable with C Yes Line (test code = 3574) POCT PREG LOT # (test code = 3575) POCT PREG TEST DATE (test code = 3576) [facility] 06:22:06 Test Item Value Reference Range Interpretation Comments APPEARANCE (test code = Hazy Clear A 9227996714) COLOR (test code = Yellow Yellow 9540599393) PH (test code = 4.8-8.0 5454405923) SP GRAVITY (test code = 1.003-1.030 5430305612) GLU U QUAL (test code = Normal Normal 0743744824) BLOOD (test code = Negative Negative INTERFERE NCE FROM 1325478820) ASCORBIC ACID M AY CAUSE FALSE NEG ATIVE RESULT KETONES (test code = 80 mg/dL Negative A 1506296617) PROTEIN (test code = 100 mg/dL Negative A 2887-8) UROBILIN (test code = Normal Normal 4606825145) BILIRUBIN (test code = Negative Negative 7198338691) NITRITE (test code = Negative Negative 0724844955) LEUK LIN (test code = Negative Negative 2605354209) RBC/HPF (test code = See_Comment H [Autom ated message] 8376743112) The system [employer] generated this result transmitted ref erence range: 0 - 3 HP F. The reference range was not used to int erpret this result as normal/abnormal . WBC/HPF (test code = See_Comment [Autom ated message] 0559380206) The system [employer] generated this result transmitted ref erence range: 0 - 5 HP F. The reference range was not used to int erpret this result as normal/abnormal . BACTERIA (test code = Negative Negative 5122655596) MUCOUS (test code = Marked Negative LPF A 8369439619) SQ EPITH (test code = See_Comment H [Auto mated message] 1604791624) The system [employer] generated this result transmitted ref erence range: <=2 HPF. The reference range was not used to int erpret this result as normal/abnormal . Lab Interpretation Abnormal (test code = 09585-1) [facility]. METABOLIC PANEL ([id number])2021-04-18 06:09:18 Test Item Value Reference Range Interpretation Comments NA (test code = 137 mmol/L 135-145 3955168989) K (test code = 4.4 mmol/L 3.5-5.0 Slight 4127416413) hemolysis CL (test code = 100 mmol/L 98-108 6043187254) CO2 TOTAL (test code 16 mmol/L 23-31 L = 3139955719) AGAP (test code = 2-16 H 6119962783) BUN (test code = 12 mg/dL 7-23 Slight 4772185750) hemolysis GLUCOSE (test code = 132 mg/dL 70-110 H 3321570213) CREATININE (test code 0.56 mg/dL 0.50-1.04 = 4678047988) TOTAL BILI (test code 1.1 mg/dL 0.1-1.1 = 7859540347) CALCIUM (test code = 11.2 mg/dL 8.6-10.6 H 4880147135) T PROTEIN (test code 9.6 g/dL 6.3-8.2 H = 6037492174) ALBUMIN (test code = 5.9 g/dL 3.5-5.0 H 7779063391) ALK PHOS (test code = 61 U/L 34-122 Slight 6971746935) hemolysis ALTv (test code = 21 U/L 5-35 1742-6) AST(SGOT) (test code 36 U/L 13-40 Slight = 3829876882) hemolysis eGFR (test code = mL/min/1.73m2 4731030422) LANE (test code = LANE) Association of Glomerular Filtration Rate (GFR) and Staging of Kidney Disease* + -----+ --------+ +| GFR (mL/min/1.73 m2) ?| With Kidney Damage ?| ?Without Kidney Damage+ +------- +---- --+| ?>90 ?| ?Stage one ?| ? Normal ?+ ------+ ---------+--------- +| ?60-89 ?| ?Stage two ?| ? Decreased GFR ? + -----+ --------+ +| ?30-59 ?| ?Stage three ?| ? Stage three ? + -----+ --------+ +| ?15-29 ?| ?Stage four ? | ? Stage four ?+ ------+ ---------+--------- +| ?<15 (or dialysis) ? ?| ?Stage five ? | ? Stage five ?+ ------+ ---------+--------- + *Each stage assumes the associated GFR level has been in effect for at least three months. ?Stages 1 to 5, with or without kidney disease, indicate chronic kidney disease. Notes: Determination of stages one and two (with eGFR >59mL/min/1.73 m2) requires estimation of kidney damage for at least three months as defined by structural or functional abnormalities of the kidney, manifested by either:Pathological abnormalities or Markers of kidney damage (including abnormalities in the composition of the blood or urine or abnormalities in imaging tests). Lab Interpretation Abnormal (test code = 90634-6) [facility]MAG[facility] 06:09:18 Test Item Value Reference Range Interpretation Comments MAGNESIUM (test code = 9644311330) 1.7 mg/dL 1.7-2.4 Lab Interpretation (test code = Normal 52607-3) [facility] CenterP[facility] TEST, [id number] 06:05:37 Test Item Value Reference Range Interpretation Comments PREG SERUM (test code Negative = 4201442753) LANE (test code = LANE) Less than 10 IU/L. ?If low titer or ectopic is suspected, resubmit specimen in 48-72 hours. [facility] CenterCB WITH [id number] 05:55:58 Test Item Value Reference Range Interpretation Comments WBC (test code = See_Comment [Automated 7490-2) message] The sy stem which generated this result transmitted reference range : 4.30 - 11.10 10*3/?L. The reference range was not used to interpret this result as normal/abnormal . RBC (test code = See_Comment [Automated 789-8) message] The sy stem which generated this result transmitted reference range : 3.93 - 5.25 10*6/?L. The reference range was not used to interpret this result as normal/abnormal . HGB (test code = 14.5 g/dL 11.6-15.0 718-7) HCT (test code = 42.1 % 35.7-45.2 4544-3) MCV (test code = 91.3 fL 80.6-95.5 787-2) MCH (test code = 31.5 pg 25.9-32.8 785-6) MCHC (test code = 34.4 g/dL 31.6-35.1 786-4) RDW-SD (test code = 40.7 fL 39.0-49.9 91217-9) RDW-CV (test code = 12.2 % 12.0-15.5 788-0) PLT (test code = See_Comment H [Automated 777-3) message] The sy stem which generated this result transmitted reference range : 166 - 358 10*3/ ?L. The reference r everett was not used to interpret this result as normal/abnormal . MPV (test code = 11.7 fL 9.5-12.9 38190-7) NRBC/100 WBC (test See_Comment [Automat ed code = 6664651278) message] The system which generated this result transmitted reference range : 0.0 - 10.0 /100 WBCs. The refer ence range was not u sed to interpret th is result as normal/abnormal . NRBC x10^3 (test code <0.01 See_Comment [Auto mated = 0072543375) message] The s ystem which generated this result transmitted reference range : 10*3/?L. The reference range was not used to interpret this result as normal/abnormal . GRAN MAT (NEUT) % 86.8 % (test code = 770-8) IMM GRAN % (test code 0.30 % = 9576158182) LYMPH % (test code = 9.4 % 736-9) MONO % (test code = 3.1 % 5905-5) EOS % (test code = 0.0 % 713-8) BASO % (test code = 0.4 % 706-2) GRAN MAT x10^3(ANC) 7.81 10*3/uL 1.88-7.09 H (test code = 7659728846) IMM GRAN x10^3 (test 0.03 10*3/uL 0.00-0.06 code = 4111922328) LYMPH x10^3 (test code 0.85 10*3/uL 1.32-3.29 L = 731-0) MONO x10^3 (test code 0.28 10*3/uL 0.33-0.92 L = 742-7) EOS x10^3 (test code = <0.03 0.03-0.39 L 711-2) BASO x10^3 (test code 0.04 10*3/uL 0.01-0.07 = 704-7) Lab Interpretation Abnormal (test code = 54573-3) [facility] METABOLIC PANEL (NA, K, CL, CO2, GLUCOSE, BUN, CREATININE, CA)2020-11-13 11:29:00 Test Item Value Reference Range Interpretation Comments NA (test code = 133 mmol/L 135-145 L 3064337996) K (test code = 4.1 mmol/L 3.5-5 0638386697) CL (test code = 105 mmol/L 98-108 5620627288) CO2 TOTAL (test code = 21 mmol/L 23-31 L 8611293420) AGAP (test code = 2-16 6695257501) BUN (test code = 5 mg/dL 7-23 L 6638161187) GLUCOSE (test code = 81 mg/dL 70-110 3418729277) CREATININE (test code = 0.52 mg/dL 0.5-1.04 8066254075) CALCIUM (test code = 8.3 mg/dL 8.6-10.6 L 2216149436) eGFR Calculation mL/min/1.73m2 (Non-) (test code = 9240313607) eGFR Calculation mL/min/1.73m2 () (test code = 9612540562) LANE (test code = LANE) Association of Glomerular Filtration Rate (GFR) and Staging of Kidney Disease* + --+ --+ ------+| GFR (mL/min/1.73 m2) ?| With Kidney Damage ?| ?Without Kidney Damage+ --------+ --------+ +| ?>90 ?| ?Stage one ?| ? Normal ?+ ---+ ---+ -------+| ?60-89 ?| ?Stage two ?| ? Decreased GFR ? + --+ --+ ------+| ?30-59 ?| ?Stage three ?| ? Stage three ? + --+ --+ ------+| ?15-29 ?| ?Stage four ? | ? Stage four ?+ ---+ ---+ -------+| ?<15 (or dialysis) ? ?| ?Stage five ? | ? Stage five ?+ ---+ ---+ -------+ *Each stage assumes the associated GFR level has been in effect for at least three months. ?Stages 1 to 5, with or without kidney disease, indicate chronic kidney disease. Notes: Determination of stages one and two (with eGFR >59mL/min/1.73 m2) requires estimation of kidney damage for at least three months as defined by structural or functional abnormalities of the kidney, manifested by either:Pathological abnormalities or Markers of kidney damage (including abnormalities in the composition of the blood or urine or abnormalities in imaging tests). Lab Interpretation Abnormal (test code = 64955-1) [facility] Test Item Value Reference Range Interpretation Comments MAGNESIUM (test code = 6167534618) 2.1 mg/dL 1.7-2.4 Lab Interpretation (test code = Normal 26789-0) [facility] CenterGC & CHLAMYDIA AMPLIFIED [id number] 02:45:00 Test Item Value Reference Range Interpretation Comments C. trachomatis Nucleic Negative Negative Acid (test code = 71376-7) N. gonorrhoeae Nucleic Negative Negative Acid (test code = 05599-3) LANE (test code = LANE) Reliable results are dependent on adequate specimen collection. ? A positive result obtained from a patient after therapeutic treatment cannot be interpreted as indicating the presence of viable organisms. ?For patients on whom a false positive result may have adverse psychosocial impact, retesting is advised. Indeterminate: Unable to generate a valid test result on this specimen. ?Please submit a new specimen for repeat testing if clinically indicated. Chlamydia trachomatis/Neisseria gonorrhoeae nucleic acid amplification testing (NAAT) has not been validated for medico-legal specimens (sexual abuse in arash-pubertal and pre-pubertal children, sexual assault, and legal cases). ?Culture for Chlamydia trachomatis and/or Neisseria gonorrhoeae from clinically appropriate sites is the method of choice in these cases. ? Results from this testing should be interpreted in conjunction with other laboratory and clinical data available to the clinician.For females in general, a urine specimen is a second-line option because it is considered less sensitive than a cervical swab for Chlamydia trachomatis and/or Neisseria gonorrhoeae NAAT. Lab Interpretation Normal (test code = 41505-5) [facility] 20:15:00 Test Item Value Reference Range Interpretation Comments MAGNESIUM (test code = 5260428708) 1.6 mg/dL 1.7-2.4 L Lab Interpretation (test code = Abnormal 35682-6) [facility] CenterCOVID[facility] (ID NOW RAPID TESTING)2020-11-12 19:18:00 Test Item Value Reference Range Interpretation Comments SARS-CoV-2 Rapid ID NOW Not Detected Not Detected (test code = 94741-0) LANE (test code = LANE) ID NOW COVID-19 Assay is an isothermal nucleic acid amplification test intended for the qualitative detection of nucleic acid from SARS-CoV-2 viral RNA in nasopharyngeal (GED INSTRUCTOR) specimens. It is used under Emergency Use Authorization (EUA) by FDA. The limit of detection (LOD) of the assay is 125 Genome Equivalents/mL. A positive result is indicative of the presence of SARS-CoV-2 RNA. ?Clinical correlation with patient history and other diagnostic information is necessary to determine patient infection status. A negative (Not Detected) result does not preclude SARS-CoV-2 infection. In patients with clinical symptoms and other tests that are consistent with SARS-CoV-2 infection, negative results should be treated as presumptive negative and a new specimen should be tested with alternative PCR molecular test. Invalid: Please collect a new specimen for repeat patient testing if clinically indicated. Lab Interpretation Normal (test code = 61041-0) [facility]. METABOLIC PANEL ([id number])2020-11-12 14:52:00 Test Item Value Reference Range Interpretation Comments NA (test code = 133 mmol/L 135-145 L 9434407367) K (test code = 2.9 mmol/L 3.5-5 LL 5096495056) CL (test code = 99 mmol/L 98-108 2231679228) CO2 TOTAL (test code = 22 mmol/L 23-31 L 4573802545) AGAP (test code = 2-16 2157415411) BUN (test code = 7 mg/dL 7-23 6034445471) GLUCOSE (test code = 107 mg/dL 70-110 5540088972) CREATININE (test code = 0.58 mg/dL 0.5-1.04 9253995884) TOTAL BILI (test code = 0.7 mg/dL 0.1-1.3 3580539147) CALCIUM (test code = 9.0 mg/dL 8.6-10.6 4800518755) T PROTEIN (test code = 7.1 g/dL 6.3-8.2 9159978247) ALBUMIN (test code = 4.5 g/dL 3.5-5 5878735250) ALK PHOS (test code = 39 U/L 34-122 3000141347) ALTv (test code = 13 U/L 5-35 1742-6) AST(SGOT) (test code = 21 U/L 13-40 6567132700) eGFR Calculation mL/min/1.73m2 (Non-) (test code = 4843284553) eGFR Calculation mL/min/1.73m2 () (test code = 3396276790) LANE (test code = LANE) Association of Glomerular Filtration Rate (GFR) and Staging of Kidney Disease* + --+ --+ ------+| GFR (mL/min/1.73 m2) ?| With Kidney Damage ?| ?Without Kidney Damage+ --------+ --------+ +| ?>90 ?| ?Stage one ?| ? Normal ?+ ---+ ---+ -------+| ?60-89 ?| ?Stage two ?| ? Decreased GFR ? + --+ --+ ------+| ?30-59 ?| ?Stage three ?| ? Stage three ? + --+ --+ ------+| ?15-29 ?| ?Stage four ? | ? Stage four ?+ ---+ ---+ -------+| ?<15 (or dialysis) ? ?| ?Stage five ? | ? Stage five ?+ ---+ ---+ -------+ *Each stage assumes the associated GFR level has been in effect for at least three months. ?Stages 1 to 5, with or without kidney disease, indicate chronic kidney disease. Notes: Determination of stages one and two (with eGFR >59mL/min/1.73 m2) requires estimation of kidney damage for at least three months as defined by structural or functional abnormalities of the kidney, manifested by either:Pathological abnormalities or Markers of kidney damage (including abnormalities in the composition of the blood or urine or abnormalities in imaging tests). Lab Interpretation Abnormal (test code = 24362-4) [facility] BETA HCG [id number] 14:52:00 Test Item Value Reference Range Interpretation Comments BETA HCG (test See_Comment [Automated m essage] code = The system ic h 1530707417) generated this result transmit katelyn reference range : Non- fe male and male patien ts: <5 mIU/mL. The reference range was not used to interpret this result as normal/abnormal . LANE (test code Gestational Age ? ? = LANE) ?Range (mIU/mL) 1-10 ?Weeks ?32-96681088-79 Weeks ?27969-98309833-70 Weeks ?2723-71580696-31 Weeks ?9358-733367 Biotin has been reported to cause a negative bias, interpret results relative to patient's use of biotin. [facility] CLC OR LCC ONLY - WET [id number] 14:08:00 Test Item Value Reference Range Interpretation Comments CLUE CELLS WET PREP (test code = Few None Seen HPF A 2686745219) BACTERIA WET PREP (test code = Moderate None Seen HPF A 5780974211) WBC WET PREP (test code = Few None Seen HPF A 5773327674) RBC WET PREP (test code = None Seen None Seen HPF 2201514176) TRICHOMONAS WET PREP (test code = None Seen None Seen HPF 6258948825) YEAST WET PREP (test code = None Seen None Seen HPF 1477117432) Lab Interpretation (test code = Abnormal 48546-5) [facility] 14:05:00 Test Item Value Reference Range Interpretation Comments APPEARANCE (test code = Hazy Clear A 1038469496) COLOR (test code = Yellow Yellow 3179174354) PH (test code = 4.8-8.0 3721531738) SP GRAVITY (test code = 1.003-1.030 4874942530) GLU U QUAL (test code = Normal Normal 8243348596) BLOOD (test code = Negative Negative 8803097864) KETONES (test code = 80 mg/dL Negative A 7933350666) PROTEIN (test code = Negative Negative 2887-8) UROBILIN (test code = Normal Normal 7758303499) BILIRUBIN (test code = Negative Negative 0753002619) NITRITE (test code = Negative Negative 9180033127) LEUK LIN (test code = Negative Negative 4156451239) RBC/HPF (test code = See_Comment [Autom ated message] 5471996215) The system [employer] generated this result transmitted ref erence range: 0 - 3 HP F. The reference range was not used to int erpret this result as normal/abnormal . WBC/HPF (test code = <1 See_Comment [Autom ated message] 6012086903) The system [employer] generated this result transmitted ref erence range: 0 - 5 HP F. The reference range was not used to int erpret this result as normal/abnormal . BACTERIA (test code = Few Negative A 5620855387) MUCOUS (test code = Slight Negative LPF A 6557677458) SQ EPITH (test code = HPF 0854006360) Lab Interpretation (test Abnormal code = 01392-6) [facility] WITH [id number] 13:48:00 Test Item Value Reference Range Interpretation Comments WBC (test code = See_Comment [Automated 6690-2) message] The sy stem which generated this result transmitted reference range : 4.30 - 11.10 10*3/?L. The reference range was not used to interpret this result as normal/abnormal . RBC (test code = See_Comment L [Automated 789-8) message] The sy stem which generated this result transmitted reference range : 3.93 - 5.25 10*6/?L. The reference range was not used to interpret this result as normal/abnormal . HGB (test code = 12.5 g/dL 11.6-15 718-7) HCT (test code = 34.7 % 35.7-45.2 L 4544-3) MCV (test code = 89.9 fL 80.6-95.5 787-2) MCH (test code = 32.4 pg 25.9-32.8 785-6) MCHC (test code = 36.0 g/dL 31.6-35.1 H 786-4) RDW-SD (test code = 36.5 fL 39-49.9 L 15909-7) RDW-CV (test code = 11.2 % 12-15.5 L 788-0) PLT (test code = See_Comment [Automated 777-3) message] The sy stem which generated this result transmitted reference range : 166 - 358 10*3/ ?L. The reference r everett was not used to interpret this result as normal/abnormal . MPV (test code = 11.6 fL 9.5-12.9 23780-4) NRBC/100 WBC (test See_Comment [Automat ed code = 1999787933) message] The system which generated this result transmitted reference range : 0.0 - 10.0 /100 WBCs. The refer ence range was not u sed to interpret th is result as normal/abnormal . NRBC x10^3 (test code <0.01 See_Comment [Auto mated = 4189399489) message] The s [employer] which generated this result transmitted reference range : 10*3/?L. The reference range was not used to interpret this result as normal/abnormal . GRAN MAT (NEUT) % 72.1 % (test code = 770-8) IMM GRAN % (test code 0.30 % = 1714170186) LYMPH % (test code = 19.9 % 736-9) MONO % (test code = 6.5 % 5905-5) EOS % (test code = 0.3 % 713-8) BASO % (test code = 0.9 % 706-2) GRAN MAT x10^3(ANC) 5.56 10*3/uL 1.88-7.09 (test code = 3294256108) IMM GRAN x10^3 (test <0.03 0-0.06 code = 2754613859) LYMPH x10^3 (test code 1.53 10*3/uL 1.32-3.29 = 731-0) MONO x10^3 (test code 0.50 10*3/uL 0.33-0.92 = 742-7) EOS x10^3 (test code = <0.03 0.03-0.39 L 711-2) BASO x10^3 (test code 0.07 10*3/uL 0.01-0.07 = 704-7) Lab Interpretation Abnormal (test code = 05027-1) [facility] TRIME[facility] LESS THAN 14 WEEKS WITH [id number] 14:49:58HISTORY: Pelvic pain. Rule out ectopic . TECHNIQUE: Both transabdominal and transvaginal pelvic ultrasound studieswere completed by the technologist. FINDINGS: Uterus is enlarged containing single live intrauterine pregnancyof approximately 6 weeks and 6 days size by CRL measurement of 6.88 mm andmean sac diameter of 2.09 cm. pole, yolk sac and cardiacactivity confirmed with heart rate of 133 bpm recorded. Right ovary is 2.7 x 0.9 cm ?and left ovary is 3.1 x 1.7 cm . Adjacent tothe right ovary, there is another hypoechoic 2.2 x 1.2 cm size abnormalitywhich could be corpusluteum hemorrhagicum surrounded by fluid. CONCLUSIONS: 1. Single live IUP of 6 weeks and 6 days sizeconfirmed with approximateEDD of 06/30/2021.2. 2.2 cm abnormality adjacent to the right ovary in posterior fzw-nq-pwpihpud be corpus luteum hemorrhagicum surrounded by fluid. [facility], Radiant Results [employer] - 11/10/2020 8:51 AM CSTHISTORY: Pelvic pain. Rule out ectopic .TECHNIQUE: Both transabdominal and transvaginal pelvic ultrasound studieswere completed by the technologist.FINDINGS: Uterus is enlarged containing single live intrauterine pregnancyof approximately 6 weeks and 6 days size by CRL measurement of 6.88 mm andmean sac diameter of 2.09 cm. pole, yolk sac and cardiacactivity confirmed with heart rate of 133 bpm recorded.Right ovary is 2.7 x 0.9 cm and left ovary is 3.1 x 1.7 cm . Adjacent tothe right ovary, there is another hypoechoic 2.2 x 1.2 cm size abnormalitywhich could be corpus luteum hemorrhagicum surrounded by fluid.CONCLUSIONS: 1. Single live IUP of 6 weeks and 6 days size confirmed with approximateEDD of 06/30/2021.2. 2.2 cm abnormality adjacentto the right ovary in posterior jdf-dr-wrejmshs be corpus luteum hemorrhagicum surrounded by fluid. [facility] / [facility] - DRUG SCREEN [id number] 14:35:00 Test Item Value Reference Range Interpretation Comments BENZO U (test code = Negative Negative 3891628249) DONAVON U (test code = Negative Negative 1085248060) AMPHET (test code = Negative Negative 6808482130) THC (test code = Presumptive Negative A Confirmatio n of 8637937596) Positive Presumptive Positive THC result requires physician order . METHADONE (test code Negative Negative = 6146934326) Meth U (test code = Negative Negative 7004861563) OPIATES (test code = Negative Negative 3979845013) Cocaine Metabolite Negative Negative (test code = 2124123569) PROPOXY (test code = Negative Negative 1306591794) Tric U (test code = Negative Negative 8992594614) PCP (test code = Negative Negative 4080098745) OXYCOD (test code = Negative Negative 8815643751) LANE (test code = Urine Drug Cutoff LANE) Ranges Benzodiazepines: ? ? 150 ng/mLBarbiturates : ?200 ng/mLAmphetamine: ? 500 ng/mLCannabinoids : ?50 ?ng/mLMethadone: ? 200 ng/mLMethamphetam ine: ? ? 500 ng/mL Opiates: ? 100 ng/mL or 2000 ng/mLCocaine: ? 150 ng/mLPropoxyphene : ?300 ng/mLTricyclics: ?300 ng/mLOxycodone: ? 100 ng/mLPCP: ? 25 ?ng/mL The results are to be used only for medical (i.e., treatment) purposes. Unconfirmed screening results must not be used for non-medical purposes (e.g., employment testing, legal testing). Lab Interpretation Abnormal (test code = 83302-0) [facility] BETA HCG [id number] 13:53:00 Test Item Value Reference Range Interpretation Comments BETA HCG (test See_Comment [Automated m essage] code = The system [employer] 0570598440) generated this result transmit katelyn reference range : Non- fe male and male patien ts: <5 mIU/mL. The reference range was not used to interpret this result as normal/abnormal . LANE (test code Gestational Age ? ? = LANE) ?Range (mIU/mL) 1-10 ?Weeks ?12-73158040-99 Weeks ?44778-56122782-83 Weeks ?7948-60298483-36 Weeks ?8201-660048 Biotin has been reported to cause a negative bias, interpret results relative to patient's use of biotin. [facility] Metabolic Panel (NA, K, CL, CO2, GLUCOSE, BUN, CREATININE, CA)2020-11-10 13:01:00 Test Item Value Reference Range Interpretation Comments NA (test code = 135 mmol/L 135-145 2870208990) K (test code = 2.9 mmol/L 3.5-5 LL 5164981949) CL (test code = 101 mmol/L 98-108 0359559895) CO2 TOTAL (test code = 20 mmol/L 23-31 L 9648395084) AGAP (test code = 2-16 8331306771) BUN (test code = 7 mg/dL 7-23 0881650023) GLUCOSE (test code = 100 mg/dL 70-110 3098275055) CREATININE (test code = 0.57 mg/dL 0.5-1.04 7020312913) CALCIUM (test code = 9.3 mg/dL 8.6-10.6 0524421066) eGFR Calculation mL/min/1.73m2 (Non-) (test code = 4397001218) eGFR Calculation mL/min/1.73m2 () (test code = 2539380596) LANE (test code = LANE) Association of Glomerular Filtration Rate (GFR) and Staging of Kidney Disease* + --+ --+ ------+| GFR (mL/min/1.73 m2) ?| With Kidney Damage ?| ?Without Kidney Damage+ --------+ --------+ +| ?>90 ?| ?Stage one ?| ? Normal ?+ ---+ ---+ -------+| ?60-89 ?| ?Stage two ?| ? Decreased GFR ? + --+ --+ ------+| ?30-59 ?| ?Stage three ?| ? Stage three ? + --+ --+ ------+| ?15-29 ?| ?Stage four ? | ? Stage four ?+ ---+ ---+ -------+| ?<15 (or dialysis) ? ?| ?Stage five ? | ? Stage five ?+ ---+ ---+ -------+ *Each stage assumes the associated GFR level has been in effect for at least three months. ?Stages 1 to 5, with or without kidney disease, indicate chronic kidney disease. Notes: Determination of stages one and two (with eGFR >59mL/min/1.73 m2) requires estimation of kidney damage for at least three months as defined by structural or functional abnormalities of the kidney, manifested by either:Pathological abnormalities or Markers of kidney damage (including abnormalities in the composition of the blood or urine or abnormalities in imaging tests). Lab Interpretation Abnormal (test code = 80502-1) [facility] Test Item Value Reference Range Interpretation Comments APPEARANCE (test code = Hazy Clear A 7736980325) COLOR (test code = Yellow Yellow 1836229826) PH (test code = 4.8-8.0 1999877717) SP GRAVITY (test code = 1.003-1.030 6491232769) GLU U QUAL (test code = Normal Normal 9252897106) BLOOD (test code = Negative Negative 4707471474) KETONES (test code = 80 mg/dL Negative A 3408774698) PROTEIN (test code = 30 mg/dL Negative A 2887-8) UROBILIN (test code = 2.0 mg/dL Normal A 4254156774) BILIRUBIN (test code = Negative Negative 7388915327) NITRITE (test code = Negative Negative 6290387628) LEUK LIN (test code = Negative Negative 5717722244) RBC/HPF (test code = See_Comment [Autom ated message] 5561573664) The system [employer] generated this result transmit katelyn reference range : 0 - 3 HPF. The refe rence range was not u sed to interpret th is result as normal/abnormal . WBC/HPF (test code = See_Comment [Autom ated message] 8526159074) The system [employer] generated this result transmit katelyn reference range : 0 - 5 HPF. The refe rence range was not u sed to interpret th is result as normal/abnormal . BACTERIA (test code = Moderate Negative A 1019281612) MUCOUS (test code = Marked Negative LPF A 5846625071) SQ EPITH (test code = HPF 3047620438) Lab Interpretation (test Abnormal code = 70534-4) [facility] (ALB, T.PRO, BILI T, BU/BC, ALT, AST, ALK PHOS)2020-11-10 12:55:00 Test Item Value Reference Range Interpretation Comments TOTAL BILI (test code = 4169588481) 1.0 mg/dL 0.1-1.1 BILI UNCON (test code = 5070921361) 0.9 mg/dL 0.1-1.1 BILI CONJ (test code = 0934073376) 0.0 mg/dL 0-0.3 T PROTEIN (test code = 7252244718) 7.6 g/dL 6.3-8.2 ALBUMIN (test code = 8530177281) 4.8 g/dL 3.5-5 ALK PHOS (test code = 3199583506) 40 U/L 34-122 ALTv (test code = 1742-6) 16 U/L 5-35 AST(SGOT) (test code = 4735789342) 24 U/L 13-40 Lab Interpretation (test code = Normal 73557-5) [facility] CenterLipase [id number] 12:48:00 Test Item Value Reference Range Interpretation Comments LIPASE (test code = 2445739439) 93 U/L 0-220 Lab Interpretation (test code = Normal 94756-4) [facility]eraPTT2021-[facility] 12:47:00 Test Item Value Reference Range Interpretation Comments APTT Patient (test See_Comment [Automat ed code = 3173-2) message] The system which generated this result transmitted reference range : 23 - 38 Seconds . The reference range was not used to interpr et this result as normal/abnormal . LANE (test code = LANE) The [facility] patient population mean normal value for aPTT is 30 seconds. Lab Interpretation Normal (test code = 21519-0) [facility] CenterProthrombin Time (PT) / [id number] 12:45:00 Test Item Value Reference Range Interpretation Comments PROTIME PATIENT (test See_Comment H [Auto mated message] code = 5964-2) The system wh ich generated this result transmitted ref erence range: 12.0 - 1 4.7 Seconds. The reference range was not used to int erpret this result as normal/abnormal . INR (test code = 6301-6) Nor mal INR <1.1; Warfarin Therap eutic range 2.0 to 3. 0 or 2.5 to 3.5, dep ending upon the indica tions. Lab Interpretation (test Abnormal code = 72170-5) [facility] CenterCBC with [id number] 12:35:00 Test Item Value Reference Range Interpretation Comments WBC (test code = See_Comment [Automated 6690-2) message] The sy stem which generated this result transmitted reference range : 4.30 - 11.10 10*3/?L. The reference range was not used to interpret this result as normal/abnormal . RBC (test code = See_Comment [Automated 789-8) message] The sy stem which generated this result transmitted reference range : 3.93 - 5.25 10*6/?L. The reference range was not used to interpret this result as normal/abnormal . HGB (test code = 13.1 g/dL 11.6-15 718-7) HCT (test code = 37.5 % 35.7-45.2 4544-3) MCV (test code = 92.4 fL 80.6-95.5 787-2) MCH (test code = 32.3 pg 25.9-32.8 785-6) MCHC (test code = 34.9 g/dL 31.6-35.1 786-4) RDW-SD (test code = 38.6 fL 39-49.9 L 45729-6) RDW-CV (test code = 11.3 % 12-15.5 L 788-0) PLT (test code = See_Comment [Automated 777-3) message] The sy stem which generated this result transmitted reference range : 166 - 358 10*3/ ?L. The reference r everett was not used to interpret this result as normal/abnormal . MPV (test code = 11.6 fL 9.5-12.9 02956-7) NRBC/100 WBC (test See_Comment [Automat ed code = 8249420307) message] The system which generated this result transmitted reference range : 0.0 - 10.0 /100 WBCs. The refer ence range was not u sed to interpret th is result as normal/abnormal . NRBC x10^3 (test code <0.01 See_Comment [Auto mated = 7109599580) message] The s ystem which generated this result transmitted reference range : 10*3/?L. The reference range was not used to interpret this result as normal/abnormal . GRAN MAT (NEUT) % 64.9 % (test code = 770-8) IMM GRAN % (test code 0.30 % = 7038001226) LYMPH % (test code = 25.6 % 736-9) MONO % (test code = 7.8 % 5905-5) EOS % (test code = 0.3 % 713-8) BASO % (test code = 1.1 % 706-2) GRAN MAT x10^3(ANC) 6.10 10*3/uL 1.88-7.09 (test code = 9852216797) IMM GRAN x10^3 (test 0.03 10*3/uL 0-0.06 code = 3367628467) LYMPH x10^3 (test code 2.41 10*3/uL 1.32-3.29 = 731-0) MONO x10^3 (test code 0.73 10*3/uL 0.33-0.92 = 742-7) EOS x10^3 (test code = 0.03 10*3/uL 0.03-0.39 711-2) BASO x10^3 (test code 0.10 10*3/uL 0.01-0.07 H = 704-7) Lab Interpretation Abnormal (test code = 70364-7) [facility] CenterPOCT [id number] 12:16:00 Test Item Value Reference Range Interpretation Comments POCT PREG (test code = 1605) Positive On board controls acceptable with Present C Line (test code = 3574) POCT PREG LOT # (test code = HCG [id number]) POCT PREG TEST DATE (test 05/18/2022 code = 3576) Lab Interpretation (test code = Normal 17091-6) [facility]"
[2022-04-10] MEDS ORDERED: NA CHLORIDE 0.9% 1,000 ML ONE (07:02)
[2022-04-10] MEDS ORDERED: PROMETHAZINE INJ 25 MG/ML AMP ONE ×2 (07:02→07:04)
[2022-04-10 07:18] LABS: Absolute Lymphocytes (CBC) 1.7 K/uL (0.7-4.9); Hematocrit 35.5 % (36.0-45.0); Lymphocytes % 22.3 % (15.3-44.8); MCV 93.1 fL (80-100); MPV 9.8 fL (7.6-11.3); RBC Red Blood Cell Count 3.82 M/uL (3.86-4.86)
[2022-04-10 07:36] LABS: Albumin 3.8 g/dL (3.4-5.0); Bilirubin Total 0.2 mg/dL (0.2-1.0); Potassium 3.3 mmol/L (3.5-5.1); Protein, Total 7.3 g/dL (6.4-8.2)
--- NOTE | 2022-04-10 08:19 | RAD REPORT ---
EXAM DESCRIPTION: US - OB Limited - 04/10/2022 8:07 am CLINICAL HISTORY: Pain COMPARISON: None FINDINGS: Single IUP identified with positive heart tones. The crown-rump length measures 3.1 cm. The gestational sac measures 6.2 cm. The yolk sac measures 4 millimeters. The heart rate is measured at 168 beats . minute. The right ovary measures 3.5 x 1.9 x 3 cm with volume of 10.3 cc. Th e left ovary was not visualized. Vascular flow is present in the right ovary. IMPRESSION: Single IUP with positive heart tones measuring 9 week 4 day with VY of 11/09/2022 . Vascular flow in the right ovary. The left ovary was not visualized.
[2022-04-10 08:22] LABS: Urine Blood Negative (Negative); Urine Glucose Negative (Negative); Urine Protein Negative (Negative); Urine Specific Gravity 1.025 (1.005-1.030); Urine pH 7.5 (5.0-7.0)
[2022-04-10 08:28] LABS: Urine Specific Gravity/Preg 1.025 (1.005-1.030)
[2022-04-10 08:35] LABS: Urine RBC None Seen /HPF (None Seen)
[2022-04-10] MEDS ORDERED: ACETAMINOPHEN 500 MG TAB ONE (08:35)
[2022-04-10] MEDS ORDERED: METOCLOPRAMIDE 10 MG/2mL INJ ONE (08:35)
[2022-04-10 08:36] LABS: Urine Bacteria <20 /HPF (<20)
[2022-04-10] MEDS ORDERED: POTASSIUM 25 MEQ EFFERV TAB ONE (08:39)
[2022-04-10] MEDS ORDERED: NA CHLORIDE 0.9% 500 ML ONE (09:21)
--- NOTE | 2022-04-10 10:12 | ER ---
Nurse's Notes [facility] Name: Deacon Padilla Age: 21 yrs Sex: Female : 2000 Arrival Date: 04/10/2022 Time: 06:41 Bed 5 Private MD: Diagnosis: Vomiting of , unspecified;Hypokalemia Presentation: 04/10 06:55 Chief complaint: Patient states: "I woke up at 5 am with bad stomach pain. I can't stop as6 throwing up and having diarrhea." pt reports being 9 weeks . Coronavirus screen: Client presents with at least one sign or symptom that may indicate coronavirus-19. Provider contacted for isolation considerations. Ebola Screen: No symptoms or risks identified at this time. Initial Sepsis Screen: Does the patient meet any 2 criteria? No. Patient's initial sepsis screen is negative. Does the patient have a suspected source of infection? No. Patient's initial sepsis screen is negative. Risk Assessment: Do you want to hurt yourself or someone else? Patient reports no desire to harm self or others. Onset of symptoms was April 10, 2022 at 05:00. 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 - Social history:: Smoking status: Patient denies any tobacco usage or history of. Screenin:19 Abuse screen: Denies threats or abuse. Denies injuries from another. Nutritional as6 screening: No deficits noted. Tuberculosis screening: No symptoms or risk factors identified. Fall Risk None identified. Assessment: 06:55 General: Appears uncomfortable, ill, Behavior is restless. Pain: Complains of pain in as6 left lower quadrant and right lower quadrant Quality of pain is described as crampy. Neuro: Level of Consciousness is awake, alert. Respiratory: Respiratory effort is even, unlabored. GI: Reports lower abdominal pain, diarrhea, nausea, vomiting. 07:09 General: Appears uncomfortable, Behavior is anxious. GI: Pt is actively vomiting bile. bm7 07:09 Reassessment: Patient is alert, oriented x 3, equal unlabored respirations, skin bm7 warm/dry/pink. night nurse at bedside administering medication. Pt actively vomiting. Will continue to monitor. 07:19 Pain: Complains of pain in abdomen and left lower quadrant and right lower quadrant bm7 Pain currently is 7 out of 10 on a pain scale. Quality of pain is described as aching, sharp, Pain began 3 hours ago. Is continuous. Neuro: No deficits noted. Level of Consciousness is awake, alert, obeys commands, Oriented to person, place, time, situation, Appropriate for age. Cardiovascular: No deficits noted. Respiratory: No deficits noted. Airway is patent Respiratory effort is even, unlabored, Respiratory pattern is regular, symmetrical. GI: Reports lower abdominal pain, nausea, vomiting, since 0500 this morning. : No deficits noted. No signs and/or symptoms were reported regarding the genitourinary system. Denies burning with urination, cramping discharge, vaginal bleeding. EENT: No deficits noted. No signs and/or symptoms were reported regarding the EENT system. Oral mucosa is moist. Derm: No deficits noted. No signs and/or symptoms reported regarding the dermatologic system. Skin is intact, is healthy with good turgor, Skin is dry, Skin is normal, Skin temperature is warm. Musculoskeletal: No deficits noted. No signs and/or symptoms reported regarding the musculoskeletal system. 07:42 Reassessment: Patient and/or family updated on plan of care and expected duration. Pain bm7 level reassessed. Patient is alert, oriented x 3, equal unlabored respirations, skin warm/dry/pink. Patient states feeling better. pt resting quietly in bed with eyes closed. Equal rise and fall off chest. In NAD. Family at bedside. . 08:01 Reassessment: Ultrasound completed. bm7 08:11 Reassessment: ERP at bedside to reassess. bm7 08:51 Reassessment: Patient and/or family updated on plan of care and expected duration. Pain bm7 level reassessed. Patient is alert, oriented x 3, equal unlabored respirations, skin warm/dry/pink. Pt refusing to keep on blood pressure cuff and pulse ox. Pt states she is too hot for that and will not continue to wear them both. Educated pt on the need for monitoring. Pt still refuses at this time. 08:59 Reassessment: pt refuses to take Tylenol and Potassium due to being nauseous. Will bm7 re-evaluate to see if nausea has improved. 09:14 Reassessment: notfied ERP that pt would only take tylenol and not potassium. New orders bm7 obtained for a 500 ml NS bolus. 10:10 Reassessment: ERP AT BEDSIDE TO REASSESS. bm7 Vital Signs: 06:55 BP 125 / 73; Pulse 86; Resp 18 S; Temp 97.8(O); Pulse Ox 99% on R/A; Weight 51.26 kg as6 (R); Height 5 ft. 1 in. (154.94 cm) (R); Pain 7/10; 07:02 BP 125 / 73; Pulse 68; Resp 18; Temp 97.8; Pulse Ox 100% ; Weight 51.26 kg; Height 5 ph ft. (152.40 cm); Pain 7/10; 07:37 BP 92 / 56; Pulse 72; Resp 16; Pulse Ox 100% on R/A; Pain 5/10; bm7 08:02 BP 120 / 67; Pulse 76; Resp 16; Pulse Ox 100% on R/A; bm7 08:50 BP 111 / 70; Pulse 76; Resp 16; Pulse Ox 100% on R/A; Pain 6/10; bm7 09:21 BP 109 / 69; Pulse 70; Resp 16; Pulse Ox 100% on R/A; Pain 4/10; bm7 10:25 BP 116 / 77; Pulse 90; Resp 16; Pulse Ox 100% on R/A; bm7 07:02 Body Mass Index 22.07 (51.26 kg, 152.40 cm) ph ED Course: 06:41 Patient arrived in ED. bp1 06:42 Colin Wallis DO is Attending Physician. ms3 06:52 Rohith Coffman, NATA is Primary Nurse. as6 07:00 Inserted saline lock: 22 gauge in left antecubital area, using aseptic technique. Blood as6 collected. 07:16 Triage completed. as6 07:18 Arm band placed on. as6 07:18 CMP Sent. as6 07:18 CBC with Diff Sent. as6 07:19 Appears restless. Awaiting lab results. bm7 07:19 Bed in low position. Call light in reach. Side rails up X2. Pulse ox on. NIBP on. Warm as6 blanket given. 07:26 Assisted to bedside commode. bm7 07:35 pt having painful bowel movement with cramping, bedside commode and wipes given. Pt bm7 still unable to void. 07:35 IV is patent, with fluids infusing freely. Patient maintains SpO2 saturation greater bm7 than 95% on room air. Thermoregulation: warm blanket given to patient. 07:42 inspector technician at bedside. bm7 08:02 Assisted to bedside commode. assisted to bedside commode for bowel movement. bm7 08:10 OB Limited In Process Unspecified. EDMS 08:39 Assisted to bedside commode. bm7 08:51 Urine collected: clean catch specimen, cloudy. bm7 10:27 IV discontinued, intact, bleeding controlled, No redness/swelling at site. Pressure bm7 dressing applied. 10:29 No provider procedures requiring assistance completed. bm7 Administered Medications: 07:05 Drug: NS 0.9% 1000 ml Route: IV; Rate: 1 bolus; Site: left antecubital; as6 08:40 Follow up: IV Status: Completed infusion; IV Intake: 1000ml bm7 07:05 Drug: Phenergan (promethazine) 25 mg Route: IM; Site: right deltoid; as6 07:38 Follow up: Response: No adverse reaction bm7 08:30 Not Given (Duplicate Order): Potassium Chloride Liquid 40 mEq PO once sd2 08:41 Drug: Reglan (metoCLOPramide) 10 mg Route: IVP; Site: left antecubital; bm7 09:14 Follow up: Response: Nausea is decreased bm7 09:14 Drug: Tylenol 1000 mg Route: PO; bm7 10:29 Follow up: Response: No adverse reaction bm7 09:22 Drug: NS 0.9% 500 ml Route: IV; Rate: 999 ml/hr; Site: left antecubital; bm7 10:27 Follow up: IV Status: Completed infusion; IV Intake: 500ml bm7 10:27 Not Given (Patient Refused): Potassium Effervescent Tablet 50 mEq PO once; dissolve in bm7 4 ounces of water or juice Medication: 07:19 VIS not applicable for this client. bm7 Intake: 08:40 IV: 1000ml; Total: 1000ml. bm7 10:27 IV: 500ml; Total: 1500ml. bm7 Outcome: 10:11 Discharge ordered by . sd2 10:27 Discharged to home ambulatory, with family. bm7 10:27 Condition: good 10:27 Discharge instructions given to patient, family, Instructed on discharge instructions, medication usage, Demonstrated understanding of instructions, follow-up care, medications, Prescriptions given X 1. 10:30 Patient left the ED. bm7 Signatures: Dispatcher [employer] EDMS Mindy Huston RN RN Colin Wallis DO DO ms3 Mariola Hartley Brittany, RN RN bm7 Rohith Coffman RN RN as6 Anita Valdes MD MD sd2
--- NOTE | 2022-04-10 10:12 | EDPHYS ---
Physician Documentation [facility] Name: Deacon Padilla Age: 21 yrs Sex: Female : 2000 Arrival Date: 04/10/2022 Time: 06:41 Bed 5 Private MD: ED Physician Colin Wallis HPI: 04/10 06:46 This 21 yrs old Black Female presents to ER via Unassigned with complaints of ms3 Nausea/Vomiting. 06:46 21-year-old female -0-1-0 presents for nausea, vomiting, lower abdominal pain that ms3 began at 5 AM. Patient states her last menstrual period was 01/25/2022. Patient states her pain is a 7/10 and located in her lower abdomen and is aching. Patient denies alleviating or inciting factors.. 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 - Social history:: Smoking status: Patient denies any tobacco usage or history of. ROS: 06:46 Constitutional: Negative for fever, and chills. Eyes: Negative for injury, pain, ms3 redness, and discharge, Neck: Negative for injury, pain, and swelling, Cardiovascular: Negative for chest pain, and palpitations. Respiratory: Negative for shortness of breath, cough, wheezing, and pleuritic chest pain. 06:46 MS/Extremity: Negative for injury and deformity, Skin: Negative for injury, rash, and discoloration. 06:46 Abdomen/GI: Positive for abdominal pain, nausea and vomiting. 06:46 All other systems are negative. Exam: 06:46 Constitutional: This is a well developed, well nourished patient who is awake, alert, ms3 and in no acute distress. Head/Face: Normocephalic, atraumatic. Neck: Trachea midline, no cervical lymphadenopathy. Supple, full range of motion without nuchal rigidity, or vertebral point tenderness. No Meningismus. Chest/axilla: Normal chest wall appearance and motion. Nontender with no deformity. Cardiovascular: Regular rate and rhythm with a normal S1 and S2. No gallops, murmurs, or rubs. Normal PMI, no JVD. No pulse deficits. Respiratory: Lungs have equal breath sounds bilaterally, clear to auscultation and percussion. No rales, rhonchi or wheezes noted. No increased work of breathing, no retractions or nasal flaring. 06:46 Abdomen/GI: Inspection: abdomen appears normal, Bowel sounds: normal, Palpation: moderate abdominal tenderness, in the right lower quadrant and left lower quadrant. Vital Signs: 06:55 BP 125 / 73; Pulse 86; Resp 18 S; Temp 97.8(O); Pulse Ox 99% on R/A; Weight 51.26 kg as6 (R); Height 5 ft. 1 in. (154.94 cm) (R); Pain 7/10; 07:02 BP 125 / 73; Pulse 68; Resp 18; Temp 97.8; Pulse Ox 100% ; Weight 51.26 kg; Height 5 ph ft. (152.40 cm); Pain 7/10; 07:37 BP 92 / 56; Pulse 72; Resp 16; Pulse Ox 100% on R/A; Pain 5/10; bm7 08:02 BP 120 / 67; Pulse 76; Resp 16; Pulse Ox 100% on R/A; bm7 08:50 BP 111 / 70; Pulse 76; Resp 16; Pulse Ox 100% on R/A; Pain 6/10; bm7 09:21 BP 109 / 69; Pulse 70; Resp 16; Pulse Ox 100% on R/A; Pain 4/10; bm7 10:25 BP 116 / 77; Pulse 90; Resp 16; Pulse Ox 100% on R/A; bm7 07:02 Body Mass Index 22.07 (51.26 kg, 152.40 cm) ph MDM: 06:46 Patient medically screened. ms3 06:46 Differential diagnosis: Nonspecific abd pain, Hyperemesis gravidarum vs electrolyte ms3 abnormality vs dehydration vs Ectopic vs UTI. 10:09 Data reviewed: vital signs, nurses notes, lab test result(s), radiologic studies. sd2 Counseling: I had a detailed discussion with the patient and/or guardian regarding: the historical points, exam findings, and any diagnostic results supporting the discharge/admit diagnosis, lab results, radiology results, the need for outpatient follow up, to return to the emergency department if symptoms worsen or persist or if there are any questions or concerns that arise at home. Medical screen evaluation completed. [facility] emergency medical condition absent. ED course: Pt resting comfortably after Reglan. Feeling improved. Tolerating PO. Will dc with Reglan for home and pt to follow up with OBGYN. Verbalizes understanding of discharge plan and strict return precautions.. 04/10 06:49 Order name: CBC with Diff; Complete Time: 07:58 ms3 04/10 06:49 Order name: CMP; Complete Time: 07:58 ms3 04/10 06:49 Order name: Urine Microscopic Only; Complete Time: 08:47 ms3 04/10 08:22 Order name: Urine Dipstick-Ancillary; Complete Time: 08:24 EDMS 04/10 08:25 Order name: Urine --Ancillary (enter results); Complete Time: 08:30 eb 04/10 08:05 Order name: OB Limited; Complete Time: 08:24 EDMS 04/10 06:49 Order name: IV Saline Lock; Complete Time: 07:18 ms3 04/10 06:49 Order name: Labs collected and sent; Complete Time: 07:18 ms3 04/10 06:49 Order name: Urine Dipstick-Ancillary (obtain specimen); Complete Time: 09:00 ms3 04/10 06:49 Order name: Urine Test (obtain specimen); Complete Time: 09:00 ms3 Administered Medications: 07:05 Drug: NS 0.9% 1000 ml Route: IV; Rate: 1 bolus; Site: left antecubital; as6 08:40 Follow up: IV Status: Completed infusion; IV Intake: 1000ml bm7 07:05 Drug: Phenergan (promethazine) 25 mg Route: IM; Site: right deltoid; as6 07:38 Follow up: Response: No adverse reaction bm7 08:30 Not Given (Duplicate Order): Potassium Chloride Liquid 40 mEq PO once sd2 08:41 Drug: Reglan (metoCLOPramide) 10 mg Route: IVP; Site: left antecubital; bm7 09:14 Follow up: Response: Nausea is decreased bm7 09:14 Drug: Tylenol 1000 mg Route: PO; bm7 10:29 Follow up: Response: No adverse reaction 7 09:22 Drug: NS 0.9% 500 ml Route: IV; Rate: 999 ml/hr; Site: left antecubital; bm7 10:27 Follow up: IV Status: Completed infusion; IV Intake: 500ml bm7 10:27 Not Given (Patient Refused): Potassium Effervescent Tablet 50 mEq PO once; dissolve in bm7 4 ounces of water or juice Disposition Summary: 04/10/22 10:11 Discharge Ordered Location: Home sd2 Problem: an ongoing problem sd2 Symptoms: have improved sd2 Condition: Stable sd2 Diagnosis - Vomiting of , unspecified sd2 - Hypokalemia sd2 Followup: sd2 - With: Private Physician - When: 2 - 3 days - Reason: Recheck today's complaints, Continuance of care, Re-evaluation by your physician Followup: sd2 - With: Emergency Department - When: As needed - Reason: Discharge Instructions: - Discharge Summary Sheet sd2 - Hyperemesis Gravidarum sd2 - Morning Sickness sd2 - Hypokalemia sd2 Forms: - Medication Reconciliation Form sd2 - Thank You Letter sd2 - Antibiotic Education sd2 - Prescription Opioid Use sd2 Prescriptions: - Reglan 10 mg Oral Tablet - take 1 tablet by ORAL route every 6 hours . Take as needed for nausea and sd2 vomiting; 20 tablet; Refills: 0, Product Selection Permitted Signatures: Dispatcher [facility] EDColin Keen DO DO ms3 Mariola Del Valle RN RN bm7 Rohith Coffman RN RN as6 Anita Valdes MD MD sd2 Corrections: (The following items were deleted from the chart) 08:05 06:51 Pelvis Complete+[email or web address] ordered. EDMS EDMS
[2022-04-10 11:04] VITALS: TEMP 97.8
[2022-04-10 11:12] VITALS: O2SAT 100
[2022-04-10 11:24] VITALS: BP 116/77
== END 2022-04-10 10:30 | disposition home or self-care (01) ==
LOC: ER 06:36
DX: O21.9 Vomiting of pregnancy, unspecified (principal); O99.611 Diseases of the digestive system complicating pregnancy, first trimester; E87.6 Hypokalemia; Z3A.09 9 weeks gestation of pregnancy
CPT/HCPCS: 96361; 85025; 36415; 81025; 80053; 76815; 96372; 96374; 99285; J2765; J2550; J7040; J7030; 81003; 81015